=== PATIENT | male | born 1990 | race Caucasian/White ===

== ENCOUNTER 2019-10-21 05:43 | Emergency (ER) | payer MEDICAID, SELFPAY ==
[2019-10-21 05:47] VITALS: BP 150/87; PULSE 87; RESP 16; TEMP 36.7; O2SAT 97
[2019-10-21] MEDS: Fluorescein STRIPS 100/BOX 1 MG OP (05:51)
[2019-10-21] MEDS: Tetracaine 0.5% 4 ML BTL (05:51)
--- NOTE | 2019-10-21 05:55 | W.ED.GENAD ---
Discharge Plan Disposition Patient Disposition: HOME Condition: Good Discharge Details Chief Complaint: EyeProblem Clinical Impression: Abrasion of cornea, right Primary Care Provider: Anirudh Richardson ED Provider: Cyrus Leonardo Home Meds and New Rx's Prescriptions: No Action methadone 40 mg Tablet,Soluble 80 mg PO DAILY RF: 0 Discharge Instructions Instructions: Corneal Abrasion (ED) Additional Instructions: You have an abrasion of your cornea. These usually heal very quickly. Please apply the erythromycin ointment 3 times daily. Please follow-up closely with the customer service engineer whose name and number we have provided you with. If you notice drainage from your eye, vision changes, worsening of your symptoms please return immediately for reassessment. As always it is a pleasure participating in your care today. [facility]: [phone] Referrals: [facility] [OTHER] - Medical Decision Making This is a pleasant 28-year-old male who presents for pain in his right eye that he noticed when he woke up. He denies any red flags or trauma to the right eye recently. Physical exam demonstrates fluorescein uptake in the right eye consistent with mild corneal abrasion. Eversion of the lids bilaterally demonstrate no evidence of foreign body. No evidence of foreign body in the eye itself. Pain relieved with tetracaine. Patient will be given erythromycin ointment for home use. Gave information for follow-up with Dr. Ribera. Vision 20/25 in the affected eye. No clinical evidence of acute angle-closure glaucoma or other abnormality. I have extensively reviewed the treatment plan and discharge instructions with the patient and their family. I have addressed all patient concerns at this time. The patient and family was made aware of what symptoms to monitor for that would warrant a return to the emergency department. Discussed the plan with the patient and family, they demonstrate verbal understanding and agreement with our assessment and plan at this time. HPI General Date/Time Provider Initiated Documentation: 10/21/19 05:45. HPI Narrative: This is a 28-year-old male with no significant past medical history who presents today for right eye pain. Patient does not wear contact lenses. Tetanus is updated 2 years ago. States that when he woke up this morning he had significant irritation in his right eye. He admits to mild blurriness. He denies any fever, chills. He denies any trauma or welding recently. He denies getting anything in his eye. He has no other complaints at this time. No other modifying factors. Related Data Home Medications Medication Instructions Recorded Confirmed methadone 80 mg PO DAILY 10/21/19 10/21/19 Allergies Allergy/AdvReac Type Severity Reaction Status Date / Time amoxicillin [Amoxicillin] Allergy Skin Rash Unverified 10/21/19 05:55 cefaclor [From Ceclor] Allergy Hives Unverified 10/21/19 05:55 General Stated Complaint: EyeProblem ANDRES: 4 Review of Systems All systems reviewed & are unremarkable except as noted in HPI and below [facility] Medical History (Updated 10/21/19 @ 05:56 by Kriss Feliz) Drug addiction (Acute) Social History Smoking/Tobacco Use Status: Current every day Drug use: Never Do you feel safe in your relationship?: Yes Exam Narrative Exam Narrative: 1.Const: Well-nourished, Well-developed, appearing stated age 2.Eyes: PERRL, no conjunctival injection, and symmetrical lids. Right eye: EOMI, PERRL, Peripheral vision intact. No nystagmus. No clinical signs of septal/orbital cellulitis, no significant redness around the eye, no proptosis. No hyphema, no signs of trauma around the eye, no periorbital emphysema. No sluggishness of the pupil. No ophthalmoplegia. No afferent pupillary defect. Fluorescein exam is positive for uptake and corneal abrasion in a linear fashion just below the pupil. No evidence of foreign body. No rest ring. negative Morris sign. Visual acuity as documented in chart. 3.ENT: Atraumatic external nose and ears. Moist MM. Neck: Symmetric, trachea midline, No thyromegaly. 4.CVS: +S1/S2, No murmurs or gallops. Peripheral pulses 2+ and equal in all extremities. Brisk capillary refill in all extremities. 5.RESP: Unlabored respiratory effort. Clear to auscultation bilaterally. No wheezes rales or rhonchi 6.GI: Soft, Nontender/Nondistended, No hepatosplenomegaly. No guarding or rebound. 7.MSK: Normocephalic/Atraumatic, Extremities w/o deformity or ttp No cyanosis or clubbing, Normal movement of all extremities 8.Skin: Warm, Dry. No rashes or lesions. 9.Neuro: emt i/99 II-XII grossly intact. Sensation grossly intact, no focal neurologic deficits. 10.Psych: (AAO) x3. Appropriate mood and affect Course Vital Signs Vital signs: Vital Signs Temperature 36.7 C 10/21/19 05:47 Pulse 87 10/21/19 05:47 Respiratory Rate 16 10/21/19 05:47 Blood Pressure 150/87 H 10/21/19 05:47 Pulse Oximetry 97 10/21/19 05:47 Temperature 36.7 C 10/21/19 05:47 Temperature Source Skin 10/21/19 05:47 Pulse 87 10/21/19 05:47 Respiratory Rate 16 10/21/19 05:47 Respiratory Effort 10/21/19 05:52 Blood Pressure 150/87 H 10/21/19 05:47 Pulse Oximetry 97 10/21/19 05:47 Pain Level 2 10/21/19 05:47
[2019-10-21] MEDS: Erythromycin Ophth Oint 3.5 GM TUBE OD (06:00)
== END 2019-10-21 06:05 | disposition home or self-care (01) ==
PROVIDERS: Emergency Provider Student in an Organized Health Care Education/Training Program; PCP General Practice
DX: S05.01XA Injury of conjunctiva and corneal abrasion without foreign body, right eye, initial encounter (principal); X58.XXXA Exposure to other specified factors, initial encounter
CPT/HCPCS: 99283

== ENCOUNTER 2020-02-13 12:03 | Emergency (ER) | payer MEDICAID, SELFPAY ==
[2020-02-13] VITALS (7 sets, daily range): BP systolic 157–176; BP diastolic 94–154; PULSE 65–96; RESP 12–20; TEMP 36.6; O2SAT 97–100
--- NOTE | 2020-02-13 12:14 | ED.GENADUL_ITS ---
Discharge Plan Disposition Patient Disposition: HOME Condition: Stable Discharge Details Chief Complaint: GenMedical Clinical Impression: Anxiety Primary Care Provider: None,None ED Provider: Araceli Herrera Home Meds and New Rx's Prescriptions: New ondansetron HCl [Zofran] 4 mg tablet 4 mg PO Q8H PRN (Reason: nausea and vomiting) Qty: 7 RF: 0 No Action methadone 40 mg Tablet,Soluble 105 mg PO DAILY RF: 0 Discharge Instructions Instructions: Alcohol Withdrawal (ED), Anxiety (ED) Additional Instructions: Follow up with primary care provider in 3-5 days. Return to ED sooner if any worsening or concerns. Increase oral fluids. Please take Tylenol or Ibuprofen with food every 4-6 hours as needed for pain and swelling. Take medications as directed. Try oral electrolyte solution such as Gatorade or similar. Referrals: Anirudh Richardson MD [ [facility] STAFF PHYSICIAN] - Medical Decision Making 29-year-old male presents with anxiety, vomiting after a 9-day alcohol binge. Patient states that he lost his job broke up with his girlfriend started drinking. Reports he has been vomiting today denies any hematochezia or dark tarry stools. He denies any suicidal ideation or homicidal ideation. No abdominal pain. Patient does appear agitated and anxious, but orders in place including Lorazepam 0.5 mg p.o., Zofran 4 mg IV and 1 L normal saline bolus. 1243: Patient reevaluation, he is lying in bed appears more comfortable heart rate 82, IV infusing without difficulty. Blood pressure is decreased 150/75. 1340: At this time I feel it is safe for patient to be discharged home with Zofran and instructions to increase oral fluids. Given instructions for alcohol withdrawal and anxiety. Instructed to follow-up with PCP. HPI General Mode of arrival: EMS . Date/Time Provider Initiated Documentation: 02/13/20 12:09 . Limitations to Documentation: no limitations . Information obtained by: patient . HPI Narrative: 29-year-old male presents with anxiety, vomiting after a 9-day alcohol binge. Patient states that he lost his job broke up with his girlfriend started drinking. Reports he has been vomiting today denies any hematochezia or dark tarry stools. He denies any suicidal ideation or homicidal ideation. No abdominal pain. Related Data Home Medications Medication Instructions Recorded Confirmed methadone 105 mg PO DAILY 10/21/19 02/13/20 ondansetron HCl [Zofran] 4 mg PO Q8H PRN #7 tab 02/13/20 Previous Rx's Medication Instructions Recorded ondansetron HCl [Zofran] 4 mg PO Q8H PRN #7 tab 02/13/20 Allergies Allergy/AdvReac Type Severity Reaction Status Date / Time amoxicillin [Amoxicillin] Allergy Skin Rash Unverified 02/13/20 12:12 cefaclor [From Ceclor] Allergy Hives Unverified 02/13/20 12:12 General Stated Complaint: GenMedical ANDRES: 3 Review of Systems Narrative: Constitutional: Negative for weight loss, alert and oriented, well groomed, normal body habitus, appears comfortable. HEENT: Denies trauma, headaches, blurry vision, nasal discharge, sore throat, trouble swallowing. Chest: Denies chest pain, palpitations, irregular rhythm, is hypertensive upon arrival but denies a history of hypertension. Respiratory: Denies Shortness of breath, cough, hemoptysis. GI: Denies abdominal pain. Positive vomiting : Denies dysuria, hematuria, flank pain, rectal bleeding. Neuro: Alert and oriented x4 denies dizziness, blurry vision.. Hematologic: Denies easy bruising, intolerance to heat or cold, hair loss. [facility] Medical History Drug addiction (Acute) Social History Smoking/Tobacco Use Status: Current every day Drug use: Never Do you feel safe in your relationship?: Yes Exam Narrative Exam Narrative: Constitutional: Allert and oriented x3. Anxious. Appears stated age. Normal body habitus. Head: Normocephalic, no trauma. Eyes: Pupils PERRLA, Red reflex noted, EOM's intact. Eyelids symmetrical withour lesions, discharge, or swelling. ENT: Bilateral TM's WNL, External ear normal to inspection, no mastoid TTP, swelling, or erythema, Nasal turbinates WNL, no nasal discharge. Normal dentition, Posterior pharynx WNL, no exudate. Chest: RRR, Normal S1, S2, distal pulses intact. Resp: Lungs clear to auscultation bilaterally, no wheezes, rales, or rhonchi. Abdomen: Abdomen is soft nontender to palpation, normoactive bowel sounds all 4 quadrants. Musculoskeletal: Normal gait, 5/5 strength to all four extremities. Skin: No suspicious rashes or lesions. Capillary refill less than 2 sec. Neurologic: Cranial nerves II-XII intact. Alert and oriented x 3. DTR's intact. Hematologic/Lymphatic: No ecchymosis, no lymphadenopathy. Course Vital Signs Vital signs: Vital Signs Temperature 36.6 C 02/13/20 12:06 Pulse 68 02/13/20 12:06 Respiratory Rate 14 02/13/20 12:06 Blood Pressure 176/154 H 02/13/20 12:06 Pulse Oximetry 100 02/13/20 12:06 Temperature 36.6 C 02/13/20 12:06 Temperature Source Skin 02/13/20 12:06 Pulse 68 02/13/20 12:06 Respiratory Rate 14 02/13/20 12:06 Respiratory Effort Non-Labored 02/13/20 12:11 Blood Pressure 176/154 H 02/13/20 12:06 Blood Pressure Position Sitting 02/13/20 12:06 Pulse Oximetry 100 02/13/20 12:06 Oxygen Delivery Method Room Air 02/13/20 12:06 Oxygen Flow Rate 0 02/13/20 12:06
[2020-02-13] MEDS: Normal Saline 1,000 ML 1000 ML IV (12:23)
[2020-02-13] MEDS: LORazepam 0.5 MG TAB PO (12:23)
[2020-02-13] MEDS: Ondansetron 4 MG/2 ML VIAL IVP (12:24)
== END 2020-02-13 13:25 | disposition home or self-care (01) ==
LOC: ER 13:26
PROVIDERS: Emergency Provider Registered Nurse Emergency
DX: F41.9 Anxiety disorder, unspecified (principal); Z56.0 Unemployment, unspecified; R11.10 Vomiting, unspecified
CPT/HCPCS: 96361; 96374; 99284; 99283; J2405

== ENCOUNTER 2020-04-23 05:37 | Inpatient (IN) | payer MEDICAID, SELFPAY ==
[2020-04-23] VITALS (102 sets, daily range): BP systolic 143–188; BP diastolic 72–115; PULSE 75–167; RESP 11–27; TEMP 36.3–36.8; O2SAT 90–100
--- NOTE | 2020-04-23 | DI.US_ITS ---
EXAM: US ABDOMEN CLINICAL HISTORY: abdominal pain TECHNIQUE: Ultrasound abdomen performed using standard protocol. COMPARISON: CT CT ABDOMEN PELVIS W from 04/23/2020 FINDINGS: ABDOMINAL AORTA AND IVC: Visualized portions normal caliber. PANCREAS: Normal where visualized. LIVER: Increased echogenicity of the liver consistent with fatty infiltration. The liver is enlarged measuring 19 cm. Hepatopedal flow in the Portal Vein. GALLBLADDER: No evidence of cholelithiasis. No evidence of wall thickening. No pericholecystic fluid identified. BILIARY SYSTEM: Common bile duct measures 9.2 mm. No intrahepatic biliary ductal dilation. AMAYA'S SIGN: Negative. KIDNEYS: Kidneys are symmetric in size. No evidence of renal calculi. No evidence of hydronephrosis. No renal mass or cyst identified. SPLEEN: Not enlarged. ASCITES: None seen. IMPRESSION: 1. Hepatomegaly and hepatic steatosis. 2. Dilatation of the common bile duct to 9.2 mm. No evidence of cholelithiasis or choledocholithiasi s. DATA REPOSITORY:
--- NOTE | 2020-04-23 05:44 | ED.GENADUL_ITS ---
Discharge Plan Disposition Patient Disposition: [facility] INPATIENT Condition: Stable Discharge Details Chief Complaint: ETOHWithdr Clinical Impression: Alcohol withdrawal Primary Care Provider: Jesus Dickson ED Provider: Nate Castillo Home Meds and New Rx's Prescriptions: No Action methadone 40 mg Tablet,Soluble 105 mg PO DAILY RF: 0 Medical Decision Making 29 yo male with hx of substance abuse on methadone comes in with abdominal pain that he states feels like his prior episode of pancreatitis. He states he has been on a malik drinking over 15 beers a day and also used cocaine last night. HE states he has mid to epigastric abdominal pain along with n/v. He denies fevers, dyspnea, chest pressure. He arrives tachycardic in the 150's, diaphoretic with tremors of the extremities. Suspect he is in alcohol withdrawal and likely has pancreatitis. Will tx with ativan, zofran, and obtain lab work and imaging. labs show lactate of 3.4 otherwise no other acute significant abnormalities. CT shows no acute findings, they do question cystitis, but UA clean and he has no symptoms. He is less anxious and less tremulous though still has some tremors and nausea and HR 130, will treat with another dose of ativan. CIWA is over 20 so do not feel he is candidate to go home, will discuss with hospitalist about admission Differential Diagnosis Differential Diagnosis: pancreatitis, kidney stone, alcohol withdrawal Medical Records Medical records reviewed: Yes I reviewed the patient's medical records. Imaging Data Radiologic Study: Attestation: I personally reviewed and interpreted this imaging study as follows: Imaging: CT Scan Radiologist's impression: IMPRESSION: 1. Moderate amount of colonic fecal material. 2. Equivocal cystitis. Lab Data Lab results reviewed: Yes I reviewed the patient's lab results. ECG Data Attestation: I personally reviewed and interpreted this ECG (s) as follows: Prior ECG tracings: not available for review Interpretation: sinus tachycardia, rate of 133, pr 114, qtc 470 HPI General Mode of arrival: ambulatory . Date/Time Provider Initiated Documentation: 04/23/20 05:39 . Limitations to Documentation: no limitations . Information obtained by: patient . History of Present Illness 29 year old M presents to the emergency department with the chief complaint of abdominal pain, described as moderate, and it has been constant. No relieving factors improve symptom(s), No exacerbating factors reported . Patient did receive the following treatments prior to arrival, none Related Data Home Medications Medication Instructions Recorded Confirmed methadone 105 mg PO DAILY 10/21/19 04/23/20 Allergies Allergy/AdvReac Type Severity Reaction Status Date / Time amoxicillin [Amoxicillin] Allergy Skin Rash Unverified 02/13/20 12:12 cefaclor [From Ceclor] Allergy Hives Unverified 02/13/20 12:12 General Stated Complaint: ETOHWithdr ANDRES: 2 Review of Systems All systems reviewed & are unremarkable except as noted in HPI and below Constitutional Constitutional: Denies chills, Denies fever(s) and Denies weakness Cardiovascular Cardiovascular: Denies chest pain and Denies dyspnea Respiratory Respiratory: Denies cough and Denies dyspnea Musculoskeletal Musculoskeletal: Denies joint swelling Neurologic Neurologic: Denies weakness [facility] Social History Smoking/Tobacco Use Status: Current every day Alcohol Intake: current Alcohol Intake frequency: 3 or more drinks per day Alcohol type: beer Drug use: Occasionally Substance use type: crack/cocaine Do you feel safe at home: Yes Do you feel safe in your relationship?: Yes Exam Const General: anxious Orientation: alert HENMT Head: normal to inspection Ears: external ears normal General nose exam: external nose normal Mouth: moist mucous membranes Eyes General: appearance normal, both eyes and all related structures Neck Neck: normal visual inspection Resp Effort & Inspection: normal respiratory effort and able to speak in complete sentences Cardio Rate: tachycardic Skin General skin exam: no rashes or lesions noted Neuro General: patient alert and patient oriented x3 Extrem General: normal to inspection Psych Mental Status: mental status grossly normal Course Vital Signs Vital signs: Vital Signs Temperature 36.3 C L 04/23/20 05:39 Pulse 158 H 04/23/20 05:39 Respiratory Rate 16 04/23/20 05:39 Blood Pressure 188/115 H 04/23/20 05:39 Pulse Oximetry 95 04/23/20 05:39 Temperature 36.3 C L 04/23/20 05:39 Temperature Source Skin 04/23/20 05:39 Pulse 158 H 04/23/20 05:39 Respiratory Rate 16 04/23/20 05:39 Blood Pressure 188/115 H 04/23/20 05:39 Blood Pressure Position Sitting 04/23/20 05:39 Pulse Oximetry 95 04/23/20 05:39 Oxygen Delivery Method Room Air 04/23/20 05:39 Oxygen Flow Rate 0 04/23/20 05:39 Pain Level 9 04/23/20 05:39
[2020-04-23] MEDS: Omnipaque 350 MG/ML 100 ML BTL IJ (05:55)
[2020-04-23] MEDS: LORazepam 2 MG/ML VIAL IVP ×6 (06:00→22:51)
[2020-04-23] MEDS: Normal Saline Flush 10 ML SYR IVP ×6 (06:01→23:08)
[2020-04-23] MEDS: Normal Saline 1,000 ML 1000 ML IV ×2 (06:01→06:55)
[2020-04-23] MEDS: Ondansetron 4 MG/2 ML VIAL IVP (06:01)
[2020-04-23] MEDS: Ketorolac 15 MG/ML VIAL IVP (06:01)
[2020-04-23 06:02] LABS: Abs Immature Grans 0.01 k/cumm (0.0-0.09); Absolute Basophil Count 0.02 k/cumm (0.0-0.2); Absolute Eosinophil Count 0.01 k/cumm (0.0-0.7); Absolute Lymphocyte Count 0.85 k/cumm (1.2-3.4); Absolute Monocyte Count 0.63 k/cumm (0.11-0.7); Absolute Neutrophil Count 4.57 k/cumm (1.2-6.7); Basophils % 0.3; Eosinophils % 0.2; HCT 41.9 % (40.0-50.0); HGB 14.6 g/dL (13.5-17.5); Immature Grans % 0.2 %; Mean Corp. HGB Concentration 34.8 g/dL (32.0-36.0); Mean Corpuscular Volume 94.8 fL (80-95); Mean Platelet Volume 9.2 fL (8.0-11.0); Monocytes % 10.3; Platelet Count 197 x1000/uL (130-400); RBC 4.42 m/cumm (4.50-6.00); RBC Distribution Width 15.6 % (11.8-14.1); White Blood Cell Count 6.09 k/cumm (4.4-10.8)
[2020-04-23 06:06] LABS: Lactate 3.4 mmol/L (0.6-1.4)
[2020-04-23 06:16] LABS: INR 1.1 (0.9-1.1); Prothrombin Time 11.4 sec (9.3-11.0)
[2020-04-23 06:20] LABS: Bilirubin Negative (Negative); Blood Negative (Negative); Clarity Clear (Clear); Glucose Negative (Negative); Ketones Negative (Negative); Leukocyte Esterase Negative (Negative); Nitrite Negative (Negative); Specific Gravity 1.015 (1.005-1.025); pH 8.5 (5-8)
[2020-04-23 06:22] LABS: ALT 89 U/L (16-63); AST 114 U/L (15-37); Albumin 4.2 g/dL (3.4-5.0); Alkaline Phosphatase 138 U/L (46-116); Anion Gap 9.4 mmol/L (3-11); BUN 10 mg/dL (7-18); Bilirubin, Direct 0.22 mg/dL (0.00-0.20); Bilirubin, Total 0.5 mg/dL (0.2-1.0); CO2 30.6 mmol/L (21.0-32.0); CREATININE 1.05 mg/dL (0.70-1.30); Calcium 8.8 mg/dL (8.5-10.1); Chloride 101 mmol/L (98-107); ETHANOL BLOOD 123.4 mg/dL (<3); Glucose 140 mg/dL (74-106); Lipase 105 U/L (73-393); Magnesium 1.5 mg/dL (1.8-2.4); Potassium 4.1 mmol/L (3.5-5.1); Sodium 141 mmol/L (136-145); Total Protein 7.6 g/dL (6.4-8.2)
[2020-04-23] MEDS: Normal Saline - Diluent 50 ML VIAL IV (06:28)
[2020-04-23 06:29] LABS: Troponin I < 0.05 ng/mL (<0.06)
--- NOTE | 2020-04-23 06:30 | DI.CT_ITS ---
EXAM: CT ABDOMEN PELVIS W CLINICAL HISTORY: middle abdominal pain TECHNIQUE: Imaging Protocol: Axial computed tomography images with coronal and sagittal reformatted images were created and reviewed CONTRAST MATERIAL: Intravenous: Omnipaque 350 Contrast volume:100 mL Oral: No COMPARISON: No exams were available for comparison FINDINGS: ABDOMEN: Lung Bases: Normal where visualized. Liver: Hepatic steatosis. No measurable mass. Portal, Superior Mesenteric, and Splenic Veins: Unremarkable. Gallbladder and Biliary Tract: No radiodense calculus or dilation. Pancreas: Normal density, no abnormal calcifications or inflammatory process. Spleen: Normal. Adrenals: No masses seen. Kidneys: Normal size, contour and axis. No radiodense stones or obstructive uropathy. No masses seen. Abdominal Aorta: Abdominal portion non-dilated. Bowel: No obstruction or bowel wall thickening. No evidence of acute appendicitis. Moderate amount o f retained stool throughout the colon which may represent constipation. Peritoneal Cavity: No ascites, collection or mesenteric inflammatory response. Lymph Nodes: Within normal limits. Bones: Unremarkable. Soft Tissues: Unremarkable. PELVIS: Bladder: Bladder is incompletely visualized. This may account for the mild apparent thickening of th e wall of the urinary bladder. No inflammatory changes are seen in the surrounding soft tissues. Reproductive Organs: Unremarkable as visualized. Lymph Nodes: Within normal limits. Bones: Within normal limits. IMPRESSION: 1. Hepatic steatosis. 2. Increased stool throughout the colon which may reflect constipation. 3. Question of thickening of the wall of the urinary bladder. This may be due to underdistention. A n inflammatory or infectious cystitis cannot be excluded. Please correlate clinically. RADIATION DOSE DELIVERED: 928.68mGy.cm Total DLP DATA REPOSITORY: All CT scans at this facility are submitted to the National Radiology Data Registry (NRDR) Dose Index Registry (DIR) with the [employer] ([employer]). RADIATION OPTIMIZATION: All CT scans at this facility use at least one of these dose optimization te chniques: automated exposure control; mA and/or kV adjustment per patient size (includes targeted exa ms where dose is matched to clinical indication); or iterative reconstruction.
[2020-04-23 06:34] LABS: *AMPHETAMINES SCREEN URINE Negative (Negative); *BARBITURATES SCREEN URINE Negative (Negative); *BENZODIAZEPINES SCREEN URINE Negative (Negative); Cannabinoids THC Negative (Negative); Cocaine Screen,Urine POSITIVE (Negative); METHADONE URINE SCREEN POSITIVE (Negative); OPIATES URINE SCREEN Negative (Negative)
[2020-04-23 06:38] LABS: Tricyclic Antidepressants Negative (Negative)
--- NOTE | 2020-04-23 06:45 | DI.VRAD_ITS ---
PROCEDURE INFORMATION: Exam: CT Abdomen And Pelvis With Contrast Exam date and time: 04/23/2020 5:44 AM Age: 29 years old Clinical indication: Localized; Other: Middle abdomen pain; Patient HX: HX of pancreatitis, middle abdominal pain TECHNIQUE: Imaging protocol: Computed tomography of the abdomen and pelvis with intravenous contrast. Contrast material: OMNIPAQUE 350; Contrast volume: 100 ml; Contrast route: IV LAC; COMPARISON: No relevant prior studies available. FINDINGS: Liver: Hepatic steatosis is present. Gallbladder and bile ducts: Normal. No calcified stones. No ductal dilation. Pancreas: Normal. No ductal dilation. Spleen: Normal. No splenomegaly. Adrenals: Normal. No mass. Kidneys and ureters: Normal. No hydronephrosis. Stomach and bowel: A moderate amount of fecal material is present within the colon.The findings may reflect an element of underlying constipation and clinical correlation is recommended. Appendix: No evidence of appendicitis. Intraperitoneal space: Unremarkable. No free air. No significant fluid collection. Vasculature: Unremarkable. No abdominal aortic aneurysm. Lymph nodes: Unremarkable. No enlarged lymph nodes. Bladder: The urinary bladder is questionably thickwalled. This may reflect incomplete distention. However correlation with UA is recommended to exclude cystitis. Reproductive: Unremarkable as visualized. Bones/joints: Unremarkable. No acute fracture. Soft tissues: Unremarkable. IMPRESSION: 1. Moderate amount of colonic fecal material. 2. Equivocal cystitis. Dictated and Authenticated by: Alfonzo Weiss MD. Ordering:VENANCIO Sullivan MD
[2020-04-23] MEDS: Folic Acid 1 MG TAB PO (06:48)
[2020-04-23] MEDS: MAGNESIUM SULFATE 2 GM/50 ML BAG IVPB ×2 (06:48→09:44)
[2020-04-23] MEDS: THIAMINE 100 MG in Normal Saline 100 ML 200 MG IVPB (06:59)
[2020-04-23] MEDS: Multivitamin TAB 1 TAB PO (07:18)
[2020-04-23] MEDS: chlordiazePOXIDE 25 MG CAP PO ×2 (08:04→10:03)
[2020-04-23] MEDS: LORazepam 2 MG/ML VIAL (08:05)
--- NOTE | 2020-04-23 09:31 | HPE_ITS ---
Date of service: 04/23/20 Time of Service: 09:32 Assessment and Plan Assessment and plan (1) Alcohol withdrawal: Status: Acute Assessment and plan: Admit to the ICU with scheduled librium, CIWA with prn ativan IV/PO, banana bag. Will add gabapentin. Keep NPO as there is a high probability of having to intubate. (2) Alcohol intoxication: Status: Acute Assessment and plan: As above - monitor for w/d. Care management consult for further recovery options (3) Opioid dependence: Status: Acute Assessment and plan: Dose of methadone verify. Will continue starting with tomorrow's dose - patient took his today. (4) Hypomagnesemia: Status: Acute Assessment and plan: Replete and continue to monitor (5) Constipation: Status: Acute Assessment and plan: Bowel regimen (6) Tobacco abuse: Status: Acute Assessment and plan: Advised to quit. Provide nicotrol inhaler. (7) Hepatic steatosis: Status: Acute Assessment and plan: Obtain US abdomen and trend LFTs (8) Transaminitis: Status: Acute Assessment and plan: Likely due to EtOH liver disease/hepatic steatosis. Obtain US abdomen. Trend (9) DVT prophylaxis: Status: Acute Assessment and plan: TEDs Chemical DVT ppx not indicated in an ambulatory 29 year old patient (10) Discharge planning issues: Status: Acute Assessment and plan: Full code Admit to ICU. Total Critical Care Time 60 minutes. History of Present Illness History of Present Illness Chief Complaint: I thought I had pancreatitis abdominal pain, alcohol withdrawal Narrative: Mr Maradiaga is a 29 year old male with PMHx of polysubstance abuse, including opioid dependence, on methadone via [facility], as well as alcohol and tobacco abuse, h/o alcohol withdrawal with hallucinations and seizures in the past, hypertension, alcoholic pancreatitis in the past, who since 5 am this am has been having epigastric pain, nausea, tremors. He vomited in ED. He was found to be actively withdrawing from alcohol in ED with elevated HR and BP, tremors. His CIWA score was 22, requiring IV ativan x2, with resulting CIWA score of 20. He had been trying to wean himself off of alcohol (normally, drinks 18 + tall-boy beers/day) by sipping on the beer, even with epigastric pain, hoping not to withdraw. He also used cocaine early this morning. He states he went on a 5-6 day alcohol drinking malik, but that had been on a long break from drinking prior until then and is interested in quitting. His CT of the abdomen ruled out acute pancreatitis. We were asked to admit the patient for further care. Review of Systems Narrative: 12 systems reviewed. Pertinent positives and negatives are as per HPI. COUNTS INCLUDE 234 BEDS AT THE [facility] Medical History (Updated 04/23/20 @ 10:39 by Krysta Owusu MD) Alcohol withdrawal (Acute) Alcohol withdrawal seizure (Acute) Alcoholic pancreatitis (Acute) Drug addiction (Acute) DTs (delirium tremens) (Acute) Hypertension (Chronic) Methadone use (Acute) via [facility] Opioid dependence (Acute) Polysubstance abuse (Acute) Surgical History (Updated 04/23/20 @ 10:20 by Krysta Owusu MD) No pertinent past surgical history (Acute) Family History (Updated 04/23/20 @ 10:22 by Krysta Owusu MD) Paternal Grandfather Heart disease Paternal Grandmother Diabetes Maternal Grandmother Diabetes Father Hypertension Social History (Updated 04/23/20 @ 10:23 by Krysta Owusu MD) Smoking/Tobacco Use Status: Current every day Tobacco Type: cigarettes Smoking packs per day: 0.5 Smoking cigarettes per day: 10.0 Years smoked: 10 Smoking pack-years: 5.00 Tobacco: How many years used: 10 Quit status: not considering quitting Counseling given: provider counseling and support medications Alcohol Intake: current Alcohol Intake frequency: 3 or more drinks per day Alcohol type: beer Counseling given: Yes Drug use: Occasionally Substance use type: crack/cocaine Do you feel safe at home: Yes Do you feel safe in your relationship?: Yes Meds Home Medications and Allergies Home Medications Medication Instructions Recorded Confirmed Type methadone 105 mg PO DAILY 10/21/19 04/23/20 History Allergies Allergy/AdvReac Type Severity Reaction Status Date / Time amoxicillin [Amoxicillin] Allergy Skin Rash Unverified 02/13/20 12:12 cefaclor [From Ceclor] Allergy Hives Unverified 02/13/20 12:12 Exam Narrative Exam Narrative: General: Very pleasant tremulous diaphoretic male, A&Ox3, not hallucinating at the time that I saw him Neurological: A&Ox3, tremulous, no focal deficits Psychiatric: tremulous/anxious, appropriate speech pattern/content, no hallucinations Skin: visible skin intact; diaphoretic HEENT: Atraumatic, normocephalic, EOMI, dry MM, clear oropharynx, no lymphaden opathy, goiter or JVD Cardiovascular: RRR, tachycardic Lungs: CTAB Gastrointestinal: soft, tender in LUQ, nondistended Genitourinary: deferred Extremities: no e/c/c BLE's Results Imaging Additional studies: CT abdomen/pelvis: 1. Hepatic steatosis. 2. Increased stool throughout the colon which may reflect constipation. 3. Question of thickening of the wall of the urinary bladder. This may be due to underdistention. An inflammatory or infectious cystitis cannot be excluded. Please correlate clinically. Labs Result diagrams: 04/23/20 05:55 04/23/20 05:55 Labs: Laboratory Results - last 24 hr 04/23/20 04/23/20 04/23/20 05:55 05:55 05:55 WBC 6.09 RBC 4.42 L Hgb 14.6 Hct 41.9 MCV 94.8 MCH 33.0 MCHC 34.8 RDW 15.6 H Plt Count 197 MPV 9.2 Immature Gran % 0.2 Neutrophils % 75.0 Lymphocytes % 14.0 Monocytes % 10.3 Eosinophils % 0.2 Basophils % 0.3 Absolute Neutrophils 4.57 Absolute Lymphocytes 0.85 L Absolute Monocytes 0.63 Absolute Eosinophils 0.01 Absolute Basophils 0.02 PT INR Sodium 141 Potassium 4.1 Chloride 101 Carbon Dioxide 30.6 Anion Gap 9.4 BUN 10 Creatinine 1.05 Estimated GFR/1.73 m2 >= 60.00 Glucose 140 H Lactate 3.4 H* Calcium 8.8 Magnesium 1.5 L Total Bilirubin 0.5 Conjugated Bilirubin 0.22 H AST 114 H ALT 89 H Alkaline Phosphatase 138 H Troponin I Total Protein 7.6 Albumin 4.2 Lipase 105 Urine Color Urine Clarity Urine pH Ur Specific [place] Urine Protein Urine Ketones Urine Blood Urine Nitrite Urine Bilirubin Urine Urobilinogen Ur Leukocyte Esterase Urine Glucose Urine Opiates Screen Urine Methadone Screen Ur Barbiturates Screen Ur Tricyclics Screen Ur Amphetamines Screen U Benzodiazepines Scrn Urine Cocaine Screen Ur THC Screen Ethyl Alcohol 123.4 04/23/20 04/23/20 04/23/20 05:55 05:55 06:10 WBC RBC Hgb Hct MCV MCH MCHC RDW Plt Count MPV Immature Gran % Neutrophils % Lymphocytes % Monocytes % Eosinophils % Basophils % Absolute Neutrophils Absolute Lymphocytes Absolute Monocytes Absolute Eosinophils Absolute Basophils PT 11.4 H INR 1.1 Sodium Potassium Chloride Carbon Dioxide Anion Gap BUN Creatinine Estimated GFR/1.73 m2 Glucose Lactate Calcium Magnesium Total Bilirubin Conjugated Bilirubin AST ALT Alkaline Phosphatase Troponin I < 0.05 Total Protein Albumin Lipase Urine Color Urine Clarity Urine pH Ur Specific [place] Urine Protein Urine Ketones Urine Blood Urine Nitrite Urine Bilirubin Urine Urobilinogen Ur Leukocyte Esterase Urine Glucose Urine Opiates Screen Negative Urine Methadone Screen Positive A Ur Barbiturates Screen Negative Ur Tricyclics Screen Negative Ur Amphetamines Screen Negative U Benzodiazepines Scrn Negative Urine Cocaine Screen Positive A Ur THC Screen Negative Ethyl Alcohol 04/23/20 06:10 WBC RBC Hgb Hct MCV MCH MCHC RDW Plt Count MPV Immature Gran % Neutrophils % Lymphocytes % Monocytes % Eosinophils % Basophils % Absolute Neutrophils Absolute Lymphocytes Absolute Monocytes Absolute Eosinophils Absolute Basophils PT INR Sodium Potassium Chloride Carbon Dioxide Anion Gap BUN Creatinine Estimated GFR/1.73 m2 Glucose Lactate Calcium Magnesium Total Bilirubin Conjugated Bilirubin AST ALT Alkaline Phosphatase Troponin I Total Protein Albumin Lipase Urine Color Yellow Urine Clarity Clear Urine pH 8.5 H Ur Specific [place] 1.015 Urine Protein Negative Urine Ketones Negative Urine Blood Negative Urine Nitrite Negative Urine Bilirubin Negative Urine Urobilinogen 1.0 H Ur Leukocyte Esterase Negative Urine Glucose Negative Urine Opiates Screen Urine Methadone Screen Ur Barbiturates Screen Ur Tricyclics Screen Ur Amphetamines Screen U Benzodiazepines Scrn Urine Cocaine Screen Ur THC Screen Ethyl Alcohol Last Vital Signs Temp 36.6 C 04/23/20 09:02 Pulse 130 H 04/23/20 09:02 Resp 19 04/23/20 09:10 BP 164/100 H 04/23/20 09:00 Pulse Ox 97 04/23/20 09:02 COVID-19 Screening In the past 14 days, have you traveled outside of [place] or [place]?: NO Had IN PERSON contact w/suspected or confirmed C-19 person: No
[2020-04-23 09:34] LABS: Lactate 2.4 mmol/L (0.6-1.4)
[2020-04-23] MEDS: MULTIVITAMIN 10 ML, THIAMINE 100 MG, FOLIC ACID 1 MG in DEXTROSE 5%-0.45% SALINE 1,000 ML 125 ML IV (09:42)
[2020-04-23] MEDS: Pantoprazole 40 MG VIAL IVP ×3 (10:02→23:05)
[2020-04-23] MEDS: Gabapentin 300 MG CAP 600 MG PO (11:17)
[2020-04-23] MEDS: chlordiazePOXIDE 25 MG CAP 50 MG PO ×2 (13:04→19:40)
[2020-04-23] MEDS: Normal Saline 1,000 ML 125 ML IV (17:34)
--- NOTE | 2020-04-23 22:42 | W.PM.PROGNOT ---
Date of Service Date of service: 04/23/20 Time of Service: 22:43 Subjective Subjective Interval history since last seen: Asked to assess for abd pain. Case reviewed. Admitted earlier today with alcohol w/d, and having abd pain at time. W/u of note for normal white count and lipase and CT of note for no signs pancreatitis, along with hepatic steatosis. Patient reports pain as roughly periumbilical or somewhat to right. Says Ativan helps with the pain. On exam: 170/110, 106, 36.4, 16. Sitting up, appears modestly uncomfortable. Abdomen +BS, soft, mild RUQ tendernes w/o rebound A/P: Abdominal pain. In this setting, AND WITH FINDINGS TO DATE, i THINK MOST LIKELY EXPLANATION IS EITHER ALCOHOLIC GASTRITIS OR ADDITIONALLY ELEMENT HEPATITIS. Certainly abd exam relatively benign. I do not see that we need to repeat work up. Will add PPI and give prn Morphine 5-10 q3 Objective Objective Clinical Data: Abnormal lab results 04/23/20 04/23/20 04/23/20 Range/Units 05:55 05:55 05:55 RBC 4.42 L (4.50-6.00) m/cumm RDW 15.6 H (11.8-14.1) % Absolute Lymphocytes 0.85 L (1.2-3.4) k/cumm PT (9.3-11.0) sec Glucose 140 H (74-106) mg/dL Lactate 3.4 H* (0.6-1.4) mmol/L Magnesium 1.5 L (1.8-2.4) mg/dL Conjugated Bilirubin 0.22 H (0.00-0.20) mg/dL AST 114 H (15-37) U/L ALT 89 H (16-63) U/L Alkaline Phosphatase 138 H (46-116) U/L Urine pH (5-8) Urine Urobilinogen (Up TO 0.2) EU/dL Urine Methadone Screen (Negative) Urine Cocaine Screen (Negative) 04/23/20 04/23/20 04/23/20 Range/Units 05:55 06:10 06:10 RBC (4.50-6.00) m/cumm RDW (11.8-14.1) % Absolute Lymphocytes (1.2-3.4) k/cumm PT 11.4 H (9.3-11.0) sec Glucose (74-106) mg/dL Lactate (0.6-1.4) mmol/L Magnesium (1.8-2.4) mg/dL Conjugated Bilirubin (0.00-0.20) mg/dL AST (15-37) U/L ALT (16-63) U/L Alkaline Phosphatase (46-116) U/L Urine pH 8.5 H (5-8) Urine Urobilinogen 1.0 H (Up TO 0.2) EU/dL Urine Methadone Screen Positive A (Negative) Urine Cocaine Screen Positive A (Negative) 04/23/20 Range/Units 09:10 RBC (4.50-6.00) m/cumm RDW (11.8-14.1) % Absolute Lymphocytes (1.2-3.4) k/cumm PT (9.3-11.0) sec Glucose (74-106) mg/dL Lactate 2.4 H* (0.6-1.4) mmol/L Magnesium (1.8-2.4) mg/dL Conjugated Bilirubin (0.00-0.20) mg/dL AST (15-37) U/L ALT (16-63) U/L Alkaline Phosphatase (46-116) U/L Urine pH (5-8) Urine Urobilinogen (Up TO 0.2) EU/dL Urine Methadone Screen (Negative) Urine Cocaine Screen (Negative) Vital Signs Temperature 36.4 C L 04/23/20 18:00 Temperature Source Tympanic 04/23/20 18:00 Pulse 85 04/23/20 21:00 Pulse 88 04/23/20 21:30 Respiratory Rate 16 04/23/20 21:30 Respiratory Effort 04/23/20 21:32 Respiratory Depth Normal 04/23/20 21:32 Respiratory Pattern Normal 04/23/20 21:32 Blood Pressure 154/90 H 04/23/20 21:00 Blood Pressure Mean 104 04/23/20 21:00 Blood Pressure Position Sitting 04/23/20 05:39 Pulse Oximetry 98 04/23/20 21:30 Oxygen Delivery Method Room Air 04/23/20 09:02 Oxygen Flow Rate 0 04/23/20 09:02 Pain Level 8 04/23/20 18:00 Intake & Output 04/22/20 04/23/2004/23/20 23:59 11:59 23:59 Intake Total 215 / 4162.2 2010.4161.2 Output Total 880 / 1530 650 / 1530 Balance 1271 / 2632.2 1361.2 / 2632.2 Weight 83.7 kg Intake: IV 2150 / 4162.2 4161. Output: Urine 880 / 1530 650 / 1530 Other: Urine Color Yellow Pale Straw Yellow Urine Appearance Clear Clear Urine Odor None None Comment used urinal for clear yellow urine with neg dipstick Voiding Methods Urinal Urinal Laboratory Results WBC 6.09 k/cumm (4.4-10.8) 04/23/20 05:55 RBC 4.42 m/cumm (4.50-6.00) L 04/23/20 05:55 Hgb 14.6 g/dL (13.5-17.5) 04/23/20 05:55 Hct 41.9 % (40.0-50.0) 04/23/20 05:55 MCV 94.8 fL (80-95) 04/23/20 05:55 MCH 33.0 pg (27.0-33.0) 04/23/20 05:55 MCHC 34.8 g/dL (32.0-36.0) 04/23/20 05:55 RDW 15.6 % (11.8-14.1) H 04/23/20 05:55 Plt Count 197 x1000/uL (130-400) 04/23/20 05:55 MPV 9.2 fL (8.0-11.0) 04/23/20 05:55 Immature Gran % 0.2 % 04/23/20 05:55 Neutrophils % 75.0 04/23/20 05:55 Lymphocytes % 14.0 04/23/20 05:55 Monocytes % 10.3 04/23/20 05:55 Eosinophils % 0.2 04/23/20 05:55 Basophils % 0.3 04/23/20 05:55 Absolute Neutrophils 4.57 k/cumm (1.2-6.7) 04/23/20 05:55 Absolute Lymphocytes 0.85 k/cumm (1.2-3.4) L 04/23/20 05:55 Absolute Monocytes 0.63 k/cumm (0.11-0.7) 04/23/20 05:55 Absolute Eosinophils 0.01 k/cumm (0.0-0.7) 04/23/20 05:55 Absolute Basophils 0.02 k/cumm (0.0-0.2) 04/23/20 05:55 PT 11.4 sec (9.3-11.0) H 04/23/20 05:55 INR 1.1 (0.9-1.1) 04/23/20 05:55 Sodium 141 mmol/L (136-145) 04/23/20 05:55 Potassium 4.1 mmol/L (3.5-5.1) 04/23/20 05:55 Chloride 101 mmol/L (98-107) 04/23/20 05:55 Carbon Dioxide 30.6 mmol/L (21.0-32.0) 04/23/20 05:55 Anion Gap 9.4 mmol/L (3-11) 04/23/20 05:55 BUN 10 mg/dL (7-18) 04/23/20 05:55 Creatinine 1.05 mg/dL (0.70-1.30) 04/23/20 05:55 Estimated GFR/1.73 m2 >= 60.00 (mL/min/1.73m2) 04/23/20 05:55 Glucose 140 mg/dL (74-106) H 04/23/20 05:55 Lactate 1.0 mmol/L (0.6-1.4) 04/23/20 12:05 Calcium 8.8 mg/dL (8.5-10.1) 04/23/20 05:55 Magnesium 1.5 mg/dL (1.8-2.4) L 04/23/20 05:55 Total Bilirubin 0.5 mg/dL (0.2-1.0) 04/23/20 05:55 Conjugated Bilirubin 0.22 mg/dL (0.00-0.20) H 04/23/20 05:55 AST 114 U/L (15-37) H 04/23/20 05:55 ALT 89 U/L (16-63) H 04/23/20 05:55 Alkaline Phosphatase 138 U/L (46-116) H 04/23/20 05:55 Troponin I < 0.05 ng/mL (<0.06) 04/23/20 05:55 Total Protein 7.6 g/dL (6.4-8.2) 04/23/20 05:55 Albumin 4.2 g/dL (3.4-5.0) 04/23/20 05:55 Lipase 105 U/L (73-393) 04/23/20 05:55 Urine Color Yellow (Yellow) 04/23/20 06:10 Urine Clarity Clear (Clear) 04/23/20 06:10 Urine pH 8.5 (5-8) H 04/23/20 06:10 Ur Specific [place] 1.015 (1.005-1.025) 04/23/20 06:10 Urine Protein Negative mg/dL (Negative) 04/23/20 06:10 Urine Ketones Negative mg/dL (Negative) 04/23/20 06:10 Urine Blood Negative (Negative) 04/23/20 06:10 Urine Nitrite Negative (Negative) 04/23/20 06:10 Urine Bilirubin Negative (Negative) 04/23/20 06:10 Urine Urobilinogen 1.0 EU/dL (Up TO 0.2) H 04/23/20 06:10 Ur Leukocyte Esterase Negative (Negative) 04/23/20 06:10 Urine Glucose Negative mg/dL (Negative) 04/23/20 06:10 Urine Opiates Screen Negative (Negative) 04/23/20 06:10 Urine Methadone Screen Positive (Negative) A 04/23/20 06:10 Ur Barbiturates Screen Negative (Negative) 04/23/20 06:10 Ur Tricyclics Screen Negative (Negative) 04/23/20 06:10 Ur Amphetamines Screen Negative (Negative) 04/23/20 06:10 U Benzodiazepines Scrn Negative (Negative) 04/23/20 06:10 Urine Cocaine Screen Positive (Negative) A 04/23/20 06:10 Ur THC Screen Negative (Negative) 04/23/20 06:10 Ethyl Alcohol 123.4 mg/dL (<3) 04/23/20 05:55
--- NOTE | 2020-04-23 23:46 | NUR.NOTE ---
2229-pt- has been c/o severe abd pain that is 11 put of [address] 10[address] Richardson has been called and he is here to eval pt. has ordered protonix and morphine. Dr. Richardson also informed that pt has scored a 23 on the ciwa and will be given another dose of 4mg iv of lorazepam
[2020-04-24] VITALS (24 sets, daily range): BP systolic 135–168; BP diastolic 78–104; PULSE 60–97; RESP 10–16; TEMP 36.5–36.7; O2SAT 95–99
--- NOTE | 2020-04-24 | DI.MRI_ITS ---
EXAM: MR ABDOMEN WO CLINICAL HISTORY: MRCP - dilated CBD TECHNIQUE: Multiplanar multisequence MRA of the Abdomen was performed. COMPARISON: CT CT ABDOMEN PELVIS W from 04/23/2020 FINDINGS: Liver: Findings consistent with fatty infiltration. Gallbladder: No evidence of cholelithiasis. There is dilatation of the common bile duct down to the head of the pancreas. It measures up to 1.3 cm in diameter. No obstructing calculus or mass is seen . Pancreas: There is fluid seen in the peripancreatic tissues and into the lesser sac region of the upp er abdomen. The main pancreatic duct is not dilated. No pancreatic pseudocyst or necrosis is apprec iated. Visualized portions of the spleen, adrenals and kidneys are unremarkable. IMPRESSION: 1. Dilatation of the common bile duct up to 1.3 cm down to the head of the pancreas. No definite huong culus or pancreatic mass is seen. No evidence of cholelithiasis. 2. Findings raising the question of acute pancreatitis with fluid in the peripancreatic soft tissues. No pseudocyst or pancreatic necrosis is identified. 3. Fatty infiltration of the liver. DATA REPOSITORY:
[2020-04-24] MEDS: LORazepam 2 MG/ML VIAL IVP ×3 (00:58→15:38)
[2020-04-24] MEDS: Normal Saline 1,000 ML 125 ML IV ×2 (01:02→20:23)
[2020-04-24] MEDS: chlordiazePOXIDE 25 MG CAP 50 MG PO ×4 (01:02→20:18)
[2020-04-24] MEDS: Docusate Sodium 100 MG CAP PO ×2 (05:08→20:18)
[2020-04-24] MEDS: Acetaminophen 325 MG TAB PO (05:08)
[2020-04-24 07:10] LABS: Abs Immature Grans 0.02 k/cumm (0.0-0.09); Absolute Basophil Count 0.01 k/cumm (0.0-0.2); Absolute Eosinophil Count 0.05 k/cumm (0.0-0.7); Absolute Lymphocyte Count 0.59 k/cumm (1.2-3.4); Absolute Monocyte Count 0.49 k/cumm (0.11-0.7); Absolute Neutrophil Count 3.43 k/cumm (1.2-6.7); Basophils % 0.2; Eosinophils % 1.1; HCT 39.4 % (40.0-50.0); HGB 13.4 g/dL (13.5-17.5); Immature Grans % 0.4 %; Lymphocytes % 12.9; Mean Corpuscular Hemoglobin 33.2 pg (27.0-33.0); Mean Corpuscular Volume 97.5 fL (80-95); Mean Platelet Volume 9.7 fL (8.0-11.0); Monocytes % 10.7; Neutrophils % 74.7; Platelet Count 145 x1000/uL (130-400); RBC 4.04 m/cumm (4.50-6.00); RBC Distribution Width 15.7 % (11.8-14.1); White Blood Cell Count 4.59 k/cumm (4.4-10.8)
[2020-04-24 07:39] LABS: ALT 58 U/L (16-63); AST 68 U/L (15-37); Albumin 3.2 g/dL (3.4-5.0); Alkaline Phosphatase 127 U/L (46-116); Anion Gap 8.3 mmol/L (3-11); BUN 8 mg/dL (7-18); Bilirubin, Direct 0.33 mg/dL (0.00-0.20); Bilirubin, Total 1.2 mg/dL (0.2-1.0); CO2 24.7 mmol/L (21.0-32.0); CREATININE 0.89 mg/dL (0.70-1.30); Calcium 8.4 mg/dL (8.5-10.1); Chloride 104 mmol/L (98-107); Glucose 101 mg/dL (74-106); Magnesium 1.8 mg/dL (1.8-2.4); Potassium 3.9 mmol/L (3.5-5.1); Sodium 137 mmol/L (136-145); TSH (W/Ref FT4) 0.77 uIU/mL (0.36-3.74); Total Protein 5.7 g/dL (6.4-8.2)
[2020-04-24 08:18] LABS: Folate 13.5 ng/mL (8.6-20.0); Vitamin B12 222 pg/mL (193-986)
[2020-04-24] MEDS: Gabapentin 300 MG CAP 600 MG PO (08:19)
[2020-04-24 08:20] LABS: COVID-19 RT-PCR UVMMC Result Negative (Negative)
[2020-04-24] MEDS: MULTIVITAMIN 10 ML, THIAMINE 100 MG, FOLIC ACID 1 MG in DEXTROSE 5%-0.45% SALINE 1,000 ML 125 ML IV (08:32)
--- NOTE | 2020-04-24 08:43 | PDOC.CMIN ---
- If Service Date Differs Date of service: 04/24/20 Time of Service: 08:43 Care Management Initial Assess REASON FOR HOSPITALIZATION:: ETOH withdrawal PAST MEDICAL HISTORY/PAST SURGICAL HISTORY:: Opioid dependence, polysubstance use, HTN, alcohol withdrawal seizures, alcohol dependency CURRENT FUNCTIONAL STATUS:: Farzad is not arousable at this time. He is receiving treatment for acute alcohol withdrawal. CM reviewed the plan of care with [facility] nurse and will return when he is more alert and able to enage with assessment. ADVANCE DIRECTIVES:: None on file unable to complete or offer at this time due to patients inability to engage Has patient been provided with info about the portal/API?: No Did the patient sign up for the portal?: No CODE STATUS:: Full Code INSURANCE COVERAGE / FINANCIAL ISSUES:: Medicaid CURRENT HOME/COMMUNITY SERVICES/EQUIPMENT:: [facility] PRIMARY CARE PHYSICIAN:: Mary Crawford POTENTIAL DISCHARGE NEEDS:: Referral to resource recovery engineer, continue services through [facility] and referral to [facility] for case management. PATIENT/FAMILY EDUCATION NEEDS:: Discharge education, limitations and follow up plan of care including ask me three and self management ANTICIPATED BARRIERS TO DISCHARGE:: No anticipate barriers identified at this time TRANSPORTATION:: Pending disposition anticipate with family at time of discharge PLAN:: Farzad is currently being treated in the ICU for acute alcohol withdrawal. Anticipate he will be discharged when medcially ready. CM to fax referral to [facility] for assistance to resources and recovery. Once he is alert will review resource recovery engineer with him and outpatient substance abuse services. CM to continue to assess for ongoing discharge needs.
[2020-04-24] MEDS: Methadone Liquid 10 MG/ML 105 MG PO (08:46)
--- NOTE | 2020-04-24 08:51 | W.PM.PROGNOT ---
Date of Service Date of service: 04/24/20 Time of Service: 11:49 Assessment and Plan Assessment and plan (1) Alcohol withdrawal: Status: Acute Assessment and plan: Continue to monitor in the ICU on CIWA with prn ativan, scheduled librium, gabapentin. Would not change doses of librium at this point - will monitor CIWA scores. (2) RUQ abdominal pain: Status: Acute Assessment and plan: Given dilated CBD, will obtain MRCP to evaluate for choledocholithiasis not seen on on CT/US and for acute pancreatitis. (3) Alcohol intoxication: Status: Acute Assessment and plan: And abuse Care management consult for further recovery options (4) Opioid dependence: Status: Acute Assessment and plan: Continue methadone, prn morphine for pain (5) Hypomagnesemia: Status: Resolved Assessment and plan: Recheck in am (6) Constipation: Status: Acute Assessment and plan: Bowel regimen to be scheduled (7) Tobacco abuse: Status: Acute Assessment and plan: Advised to quit. Continue nicotrol inhaler. (8) Hepatic steatosis: Status: Chronic Assessment and plan: May not be the only thing contributing to elevated LFTs. Checking MRCP today given CBD dilatation. (9) Transaminitis: Status: Acute Assessment and plan: As above. Better today. (10) DVT prophylaxis: Status: Acute Assessment and plan: TEDs Chemical DVT ppx not indicated in an ambulatory 29 year old patient (11) Discharge planning issues: Status: Acute Assessment and plan: Full code Keep in ICU. Total Critical Care Time 35 minutes. Subjective Subjective Interval history since last seen: CIWA 16 this am - received methadone, librium, gabapentin. Then got sleepier (arousable). Currently biggest complaint is RUQ pain - like I've never had before. Required morphine overnight for the same pain. Reported LLQ pain to nursing this am. Denies dizziness, chest pain, shortness of breath, nausea. +BM - brown. Having hallucinations earlier today, not now. Not requiring oxygen/respiratory support. Exam Narrative Exam Narrative: General: pleasant male, somnolent, arousable, appears uncomfortable, A&Ox3, not tremulous or hallucinating when I came to see him HEENT: EOMI, MMM Heart: RRR, no m/r/g Lungs: CTAB Abdomen: TTP RUQ (+Varela's sign) Extremities: no e/c/c BLE's Objective Objective Clinical Data: Abnormal lab results 04/23/20 04/24/20 04/24/20 Range/Units 09:10 06: 06:20 RBC 4.04 L (4.50-6.00) m/cumm Hgb 13.4 L (13.5-17.5) g/dL Hct 39.4 L (40.0-50.0) % MCV 97.5 H (80-95) fL MCH 33.2 H (27.0-33.0) pg RDW 15.7 H (11.8-14.1) % Absolute Lymphocytes 0.59 L (1.2-3.4) k/cumm Lactate 2.4 H* (0.6-1.4) mmol/L Calcium 8.4 L (8.5-10.1) mg/dL Total Bilirubin 1.2 H (0.2-1.0) mg/dL Conjugated Bilirubin 0.33 H (0.00-0.20) mg/dL AST 68 H (15-37) U/L Alkaline Phosphatase 127 H (46-116) U/L Total Protein 5.7 L (6.4-8.2) g/dL Albumin 3.2 L (3.4-5.0) g/dL Vital Signs Temperature 36.7 C 04/24/20 04:10 Temperature Source Temporal Artery Scan 04/24/20 04:10 Pulse 78 04/24/20 03:00 Pulse 80 04/24/20 03:00 Respiratory Rate 15 04/24/20 04:10 Respiratory Effort 04/24/20 04:10 Respiratory Depth Shallow 04/24/20 04:10 Respiratory Pattern Normal 04/24/20 04:10 Blood Pressure 163/92 H 04/24/20 03:00 Blood Pressure Mean 108 04/24/20 03:00 Blood Pressure Position Sitting 04/23/20 05:39 Pulse Oximetry 98 04/24/20 04:10 Oxygen Delivery Method Room Air 04/24/20 04:10 Oxygen Flow Rate 0 04/24/20 04:10 Pain Level 8 04/24/20 08:46 Intake & Output 04/23/20 04/23/20 04/24/20 11:59 23:59 11:59 Intake Total 2154161.2 4161. 933.333 / 933.333 Output Total 880 / 1530 650 / 1530 400 / 400 Balance 1271 / 2632.2 1361.2 / 2632.2 533.333 / 533.333 Weight 83.7 kg Intake: [place] [address].2 4161. 933.333 / 933.333 Output: Urine 880 / 1530 650 / 1530 400 / 400 Other: Urine Color Yellow Pale Dark Gege Straw Yellow Urine Appearance Clear Clear Clear Urine Odor None None Normal Comment voids to urinal voids to urinal Stool Characteristics Soft Formed Brown Voiding Methods Urinal Urinal Bedside Commode Laboratory Results WBC 4.59 k/cumm (4.4-10.8) 04/24/20 06:20 RBC 4.04 m/cumm (4.50-6.00) L 04/24/20 06:20 Hgb 13.4 g/dL (13.5-17.5) L 04/24/20 06:20 Hct 39.4 % (40.0-50.0) L 04/24/20 06:20 MCV 97.5 fL (80-95) H 04/24/20 06:20 MCH 33.2 pg (27.0-33.0) H 04/24/20 06:20 MCHC 34.0 g/dL (32.0-36.0) 04/24/20 06:20 RDW 15.7 % (11.8-14.1) H 04/24/20 06:20 Plt Count 145 x1000/uL (130-400) 04/24/20 06:20 MPV 9.7 fL (8.0-11.0) 04/24/20 06:20 Immature Gran % 0.4 % 04/24/20 06:20 Neutrophils % 74.7 04/24/20 06:20 Lymphocytes % 12.9 04/24/20 06:20 Monocytes % 10.7 04/24/20 06:20 Eosinophils % 1.1 04/24/20 06:20 Basophils % 0.2 04/24/20 06:20 Absolute Neutrophils 3.43 k/cumm (1.2-6.7) 04/24/20 06:20 Absolute Lymphocytes 0.59 k/cumm (1.2-3.4) L 04/24/20 06:20 Absolute Monocytes 0.49 k/cumm (0.11-0.7) 04/24/20 06:20 Absolute Eosinophils 0.05 k/cumm (0.0-0.7) 04/24/20 06:20 Absolute Basophils 0.01 k/cumm (0.0-0.2) 04/24/20 06:20 PT 11.4 sec (9.3-11.0) H 04/23/20 05:55 INR 1.1 (0.9-1.1) 04/23/20 05:55 Sodium 137 mmol/L (136-145) 04/24/20 06:20 Potassium 3.9 mmol/L (3.5-5.1) 04/24/20 06:20 Chloride 104 mmol/L (98-107) 04/24/20 06:20 Carbon Dioxide 24.7 mmol/L (21.0-32.0) 04/24/20 06:20 Anion Gap 8.3 mmol/L (3-11) 04/24/20 06:20 BUN 8 mg/dL (7-18) 04/24/20 06:20 Creatinine 0.89 mg/dL (0.70-1.30) 04/24/20 06:20 Estimated GFR/1.73 m2 >= 60.00 (mL/min/1.73m2) 04/24/20 06:20 Glucose 101 mg/dL (74-106) 04/24/20 06:20 Lactate 1.0 mmol/L (0.6-1.4) 04/23/20 12:05 Calcium 8.4 mg/dL (8.5-10.1) L 04/24/20 06:20 Magnesium 1.8 mg/dL (1.8-2.4) 04/24/20 06:20 Total Bilirubin 1.2 mg/dL (0.2-1.0) H 04/24/20 06:20 Conjugated Bilirubin 0.33 mg/dL (0.00-0.20) H 04/24/20 06:20 AST 68 U/L (15-37) H 04/24/20 06:20 ALT 58 U/L (16-63) 06/11/20 06:20 Alkaline Phosphatase 127 U/L (46-116) H 04/24/20 06:20 Troponin I < 0.05 ng/mL (<0.06) 04/23/20 05:55 Total Protein 5.7 g/dL (6.4-8.2) L 04/24/20 06:20 Albumin 3.2 g/dL (3.4-5.0) L 04/24/20 06:20 Lipase 105 U/L (73-393) 04/23/20 05:55 Vitamin B12 222 pg/mL (193-986) 04/24/20 06:20 Folate 13.5 ng/mL (8.6-20.0) 04/24/20 06:20 TSH 0.77 uIU/mL (0.36-3.74) 04/24/20 06:20 Urine Color Yellow (Yellow) 04/23/20 06:10 Urine Clarity Clear (Clear) 04/23/20 06:10 Urine pH 8.5 (5-8) H 04/23/20 06:10 Ur Specific [place] 1.015 (1.005-1.025) 04/23/20 06:10 Urine Protein Negative mg/dL (Negative) 04/23/20 06:10 Urine Ketones Negative mg/dL (Negative) 04/23/20 06:10 Urine Blood Negative (Negative) 04/23/20 06:10 Urine Nitrite Negative (Negative) 04/23/20 06:10 Urine Bilirubin Negative (Negative) 04/23/20 06:10 Urine Urobilinogen 1.0 EU/dL (Up TO 0.2) H 04/23/20 06:10 Ur Leukocyte Esterase Negative (Negative) 04/23/20 06:10 Urine Glucose Negative mg/dL (Negative) 04/23/20 06:10 Urine Opiates Screen Negative (Negative) 04/23/20 06:10 Urine Methadone Screen Positive (Negative) A 04/23/20 06:10 Ur Barbiturates Screen Negative (Negative) 04/23/20 06:10 Ur Tricyclics Screen Negative (Negative) 04/23/20 06:10 Ur Amphetamines Screen Negative (Negative) 04/23/20 06:10 U Benzodiazepines Scrn Negative (Negative) 04/23/20 06:10 Urine Cocaine Screen Positive (Negative) A 04/23/20 06:10 Ur THC Screen Negative (Negative) 04/23/20 06:10 Ethyl Alcohol 123.4 mg/dL (<3) 04/23/20 05:55 COVID-19 PCR Negative (Negative) 04/23/20 08:41 Nasopharyn COVID-19 PCR Not Applicable 04/23/20 08:41 Ref Test Perform Site [facility] 04/23/20 08:41 US abdomen: 1. Hepatomegaly and hepatic steatosis. 2. Dilatation of the common bile duct to 9.2 mm. No evidence of cholelithiasis or choledocholithiasis.
--- NOTE | 2020-04-24 09:05 | PHA.REVIEW ---
Pharmacy Admission Review - Admission Clinical Review (Last Updated 04/23/20 @ 10:20 by Krysta Owusu MD) Discharge planning issues (Acute) DVT prophylaxis (Acute) Transaminitis (Acute) Hepatic steatosis (Acute) Constipation (Acute) Hypomagnesemia (Acute) Tobacco abuse (Acute) Alcohol intoxication (Acute) Opioid dependence (Acute) Alcohol withdrawal (Acute) amoxicillin [Amoxicillin] Allergy (Unverified 02/13/20 12:12) Skin Rash cefaclor [From Ceclor] Allergy (Unverified 02/13/20 12:12) Hives Height 5 ft 11 in Weight 83.7 kg - Renal Dosing Renal Dosing: BUN 8 mg/dL (7-18) 04/24/20 06:20 Creatinine 0.89 mg/dL (0.70-1.30) 04/24/20 06:20 Medications needing adjustments: Reviewed (est CrCl~ 132 mL/min Meds-ok) - Anticoagulation Anticoagulation: Hgb 13.4 g/dL (13.5-17.5) L 04/24/20 06:20 Hct 39.4 % (40.0-50.0) L 04/24/20 06:20 Plt Count 145 x1000/uL (130-400) 04/24/20 06:20 INR 1.1 (0.9-1.1) 04/23/20 05:55 Creatinine 0.89 mg/dL (0.70-1.30) 04/24/20 06:20 DVT Prohphylaxis: Reviewed (has TEDS) Therapeutic Anticoagulation: N/A - Opiate Usage Evaluate Pain Scale/Pains Meds: Reviewed (Morphine 4mg ivp q3h, and Methadone Liquid 105mg daily) Scheduled Bowel Reg ordered if on Opiates?: No - Relevant Labs Sodium 137 mmol/L (136-145) 04/24/20 06:20 Potassium 3.9 mmol/L (3.5-5.1) 04/24/20 06:20 Chloride 104 mmol/L (98-107) 04/24/20 06:20 Magnesium 1.8 mg/dL (1.8-2.4) 04/24/20 06:20 - DM Control DM Control: Glucose 101 mg/dL (74-106) 04/24/20 06:20 Insulin Dosing: N/A - Heart Failure/SC Heart Failure/SC: Troponin I < 0.05 ng/mL (<0.06) 04/23/20 05:55 EF%, ELAINE's, B-Blockers, Diuretics: N/A - BP Control BP Control: Blood Pressure 151/89 Blood Pressure 151/93 Blood Pressure 152/95 Blood Pressure 157/100 Blood Pressure 167/99 Blood Pressure 160/101 Blood Pressure 163/92 Blood Pressure 156/92 Blood Pressure 168/104 Blood Pressure 164/90 Blood Pressure 166/108 Blood Pressure 170/110 If elevated: Reviewed (elevated but not treated, undergoing ETOH withdrawal) - Qtc Review If Elevated: Reviewed (QTc-470, (on Protonix and Zofran here) - IV to PO Switch IV Medications: Reviewed (has Banana bag currently and IVP Morphine) - Home Meds Home Med List reviewed: Reviewed (receiving liquid Methadone 105mg daily) - Current meds Current Medication Order Review: Reviewed (being treated for GI with Carafate and Protonix)
[2020-04-24] MEDS: Normal Saline Flush 10 ML SYR IVP ×4 (09:51→20:19)
[2020-04-24] MEDS: Pantoprazole 40 MG VIAL IVP ×2 (09:51→20:18)
[2020-04-24] MEDS: Sucralfate 1 GM TAB PO ×3 (09:57→20:18)
[2020-04-24] MEDS: Gadoterate meglumine 20 ML VIAL 13 ML IVP (12:46)
--- NOTE | 2020-04-24 13:40 | W.NUTRFU ---
Date of service: 04/24/20 Time of Service: 13:40 Nutritional Follow up NOTE: 29 year old male admitted into ICU for ETOH withdrawl. PMH: pancreatitis, hepatic stenosis. Meds include thiamin, MVI and folic acid to replete. Currently NPO x 2 days. Receiving IVF D5, 125ml/hr. If unable to transition to PO diet in next 3 days, will be at risk for nutritional decline. Will follow and make necessary recommendations. Time Spent in Nutritional Counseling and Treatment: 0
--- NOTE | 2020-04-24 16:51 | DI.VRAD_ITS ---
PROCEDURE INFORMATION: Exam: MR Abdomen Without Contrast Exam date and time: 04/24/2020 4:03 PM Age: 29 years old Clinical indication: Abdominal pain; Other: Ruq pain; Patient HX: Limited study due to anxiety and motion. Patient could not tolerate additional imaging TECHNIQUE: Imaging protocol: MR of the abdomen without contrast. COMPARISON: CT ABDOMEN PELVIS W 04/23/2020 6:21 AM FINDINGS: The study is limited because of patient motion artifact and the patient could not tolerate completion of the MR study. Liver: No mass. The increased T1 and low T2 signal within the liver parenchyma is consistent with diffuse fatty infiltration. Gallbladder and bile ducts: Cholelithiasis is not identified. Abnormal biliary ductal dilation is present with the common bile duct measuring up to 13 mm in diameter down to the head of the pancreas. No definite obstructing intraductal calculus seen, however. Pancreas: There is marked inflammatory change and fluid present in the peripancreatic fat planes extending into both anterior pararenal spaces into the lesser sac region of the upper abdomen suggestive of underlying acute pancreatitis. The main pancreatic duct is not dilated. No evidence of pancreatic necrosis or pancreatic pseudocyst formation. No ascites. Spleen: Unremarkable. No splenomegaly. Adrenals: Unremarkable. No mass. Kidneys and ureters: Unremarkable. No solid mass. No hydronephrosis. Stomach and bowel: Visualized stomach and intestines are unremarkable. Intraperitoneal space: No free fluid. Arteries: No abdominal aortic aneurysm. Bones/joints: Portions of the thoracic and lumbar spine visualized appear normal. Soft tissues: Unremarkable. IMPRESSION: 1. Questionable acute pancreatitis. There is marked inflammatory change and fluid present in the peripancreatic fat planes extending into both anterior pararenal spaces into the lesser sac region of the upper abdomen suggestive of underlying acute pancreatitis. The main pancreatic duct is not dilated. No evidence of pancreatic necrosis or pancreatic pseudocyst formation. No ascites. 2. Cholelithiasis is not identified. The gallbladder appears normal. 3. Abnormal biliary ductal dilation is present with the common bile duct measuring up to 13 mm in diameter down to the head of the pancreas. No definite obstructing intraductal calculus or obstructing pancreatic mass seen, however. 4. Diffuse fatty infiltration of the liver. Dictated and Authenticated by: Cabrera Alan MD. Ordering:KATIE Chaparro MD
[2020-04-24] MEDS: LORazepam 1 MG TAB PO/SL (23:59)
[2020-04-25] VITALS (39 sets, daily range): BP systolic 122–163; BP diastolic 66–109; PULSE 54–123; RESP 8–25; TEMP 36.1–36.7; O2SAT 94–99
[2020-04-25] MEDS: LORazepam 2 MG/ML VIAL IVP ×11 (00:40→23:45)
[2020-04-25] MEDS: chlordiazePOXIDE 25 MG CAP 50 MG PO ×3 (02:38→07:49)
[2020-04-25] MEDS: Sucralfate 1 GM TAB PO ×5 (02:38→22:48)
[2020-04-25] MEDS: Normal Saline 1,000 ML 125 ML IV ×2 (04:21→19:31)
[2020-04-25 07:03] LABS: Abs Immature Grans 0.02 k/cumm (0.0-0.09); Absolute Basophil Count 0.01 k/cumm (0.0-0.2); Absolute Eosinophil Count 0.16 k/cumm (0.0-0.7); Absolute Lymphocyte Count 0.93 k/cumm (1.2-3.4); Absolute Monocyte Count 0.33 k/cumm (0.11-0.7); Absolute Neutrophil Count 2.94 k/cumm (1.2-6.7); Basophils % 0.2; Eosinophils % 3.6; HCT 36.4 % (40.0-50.0); HGB 12.3 g/dL (13.5-17.5); Immature Grans % 0.5 %; Lymphocytes % 21.2; Mean Corp. HGB Concentration 33.8 g/dL (32.0-36.0); Mean Corpuscular Hemoglobin 33.2 pg (27.0-33.0); Mean Corpuscular Volume 98.4 fL (80-95); Mean Platelet Volume 9.6 fL (8.0-11.0); Monocytes % 7.5; Platelet Count 113 x1000/uL (130-400); RBC Distribution Width 15.6 % (11.8-14.1); White Blood Cell Count 4.39 k/cumm (4.4-10.8)
[2020-04-25 07:23] LABS: ALT 40 U/L (16-63); AST 39 U/L (15-37); Albumin 2.8 g/dL (3.4-5.0); Alkaline Phosphatase 115 U/L (46-116); BUN 9 mg/dL (7-18); Bilirubin, Direct 0.32 mg/dL (0.00-0.20); Bilirubin, Total 0.9 mg/dL (0.2-1.0); CREATININE 0.91 mg/dL (0.70-1.30); Calcium 8.3 mg/dL (8.5-10.1); Chloride 104 mmol/L (98-107); Glucose 102 mg/dL (74-106); Magnesium 1.4 mg/dL (1.8-2.4); Potassium 3.5 mmol/L (3.5-5.1); Sodium 138 mmol/L (136-145); Total Protein 5.5 g/dL (6.4-8.2)
[2020-04-25] MEDS: Docusate Sodium 100 MG CAP PO ×2 (07:49→20:19)
[2020-04-25] MEDS: Normal Saline Flush 10 ML SYR IVP ×3 (07:50→16:30)
[2020-04-25] MEDS: Pantoprazole 40 MG VIAL IVP ×2 (07:50→20:19)
--- NOTE | 2020-04-25 08:12 | W.PM.PROGNOT ---
Date of Service Date of service: 04/25/20 Time of Service: 12:00 Assessment and Plan Assessment and plan (1) Alcohol withdrawal: Status: Acute Assessment and plan: Improving. Start to decrease scheduled librium. Continue to monitor in the ICU on CIWA with prn ativan, daily gabapentin. Continue banana bag daily. (2) Acute pancreatitis: Status: Acute Assessment and plan: Seen on MRCP. Does have a dilated CBD, but no evidence of choledocholithiasis. Will consult GI for inpatient vs outpatient ERCP. Per patient, this is his 4th bout of pancreatitis. Advance diet. (3) Alcohol abuse: Status: Chronic Assessment and plan: Care management is setting the patient up with recovery options. (4) Opioid dependence: Status: Acute Assessment and plan: Continue methadone, prn morphine for pain (5) Hypomagnesemia: Status: Acute Assessment and plan: Replete (6) Constipation: Status: Resolved Assessment and plan: Bowel regimen to be scheduled (7) Tobacco abuse: Status: Chronic Assessment and plan: Advised to quit. Continue nicotrol inhaler. (8) Hepatic steatosis: Status: Chronic Assessment and plan: May not be the only thing contributing to elevated LFTs given acute pancreatitis. Needs to stop drinking. Referring to GI. (9) Transaminitis: Status: Acute Assessment and plan: As above. Better today. (10) DVT prophylaxis: Status: Acute Assessment and plan: TEDs Chemical DVT ppx not indicated in an ambulatory 29 year old patient (11) Discharge planning issues: Status: Acute Assessment and plan: Full code Keep in ICU. Total Critical Care Time 35 minutes. Subjective Subjective Interval history since last seen: Denies dizziness, chest pain, shortness of breath, nausea. He can feel his pancreas, but it feels a lot better. Overall, feels better. A&Ox3, CIWA 11 - 3 mg of IV ativan at 6:18. CIWA score of 3 since. VSS. O2 sat 97%. HR 60-90. Not retaining urine. +BM. Pain 5/10. Diet advanced to clears - tolerating. Requests advancing of the diet to solid (otherwise, considering leaving AMA, but agrees to stay). Some visual disturbance (?baseline due to vision loss). Auditory hallucinations getting better, still there. Exam Narrative Exam Narrative: General: pleasant male, awake, A&Ox3, not tremulous or hallucinating, cooperative HEENT: EOMI, MMM Heart: RRR, no m/r/g Lungs: CTAB Abdomen: soft, nontender Extremities: no e/c/c BLE's Objective Objective Clinical Data: Abnormal lab results 04/25/20 04/25/20 Range/Units 06:50 06:50 WBC 4.39 L (4.4-10.8) k/cumm RBC 3.70 L (4.50-6.00) m/cumm Hgb 12.3 L (13.5-17.5) g/dL Hct 36.4 L (40.0-50.0) % MCV 98.4 H (80-95) fL MCH 33.2 H (27.0-33.0) pg RDW 15.6 H (11.8-14.1) % Plt Count 113 L (130-400) x1000/uL Absolute Lymphocytes 0.93 L (1.2-3.4) k/cumm Calcium 8.3 L (8.5-10.1) mg/dL Magnesium 1.4 L (1.8-2.4) mg/dL Conjugated Bilirubin 0.32 H (0.00-0.20) mg/dL AST 39 H (15-37) U/L Total Protein 5.5 L (6.4-8.2) g/dL Albumin 2.8 L (3.4-5.0) g/dL Vital Signs Temperature 36.7 C 04/25/20 07:54 Temperature Source Temporal Artery Scan 04/25/20 07:54 Pulse 80 04/25/20 07:54 Pulse 65 04/25/20 04:00 Respiratory Rate 17 04/25/20 07:54 Respiratory Effort 04/25/20 07:54 Respiratory Depth Normal 04/25/20 07:54 Respiratory Pattern Normal 04/25/20 07:54 Blood Pressure 146/79 H 04/25/20 07:54 Blood Pressure Mean 101 04/25/20 07:54 Blood Pressure Position Sitting 04/25/20 07:54 Pulse Oximetry 97 04/25/20 07:54 Oxygen Delivery Method Room Air 04/25/20 07:54 Oxygen Flow Rate 0 04/25/20 07:54 Pain Level 5 04/25/20 07:54 Intake & Output 04/24/20 04/24/20 04/25/20 11:59 23:59 11:59 Intake Total 1933.333 / 3004.533 1071.2 / 3004.533 1055.833 / 1055.833 Output Total 1100 / 1475 375 / 1475 900 / 900 Balance 833.333 / 1529.533 696.2 / 1529.533 155.833 / 155.833 Weight 89.1 kg Intake: IV 1933.333 / 2944.533 1011.2 / 2944.533 995.833 / 995.833 Oral 60 / 60 60 / 60 Output: Urine 1100 / 1475 375 / 1475 900 / 900 Other: Urine Color Light Shantelle Light Shantelle Light Shantelle Urine Appearance Clear Clear Clear Urine Odor Normal None Normal Comment Dark shantelle urine this am. pt voided in urinal- clear light shantelle Stool Occult Blood Negative Stool Size Moderate Stool Characteristics Formed Voiding Methods Urinal Urinal Urinal Laboratory Results WBC 4.39 k/cumm (4.4-10.8) L 04/25/20 06:50 RBC 3.70 m/cumm (4.50-6.00) L 04/25/20 06:50 Hgb 12.3 g/dL (13.5-17.5) L 04/25/20 06:50 Hct 36.4 % (40.0-50.0) L 04/25/20 06:50 MCV 98.4 fL (80-95) H 04/25/20 06:50 MCH 33.2 pg (27.0-33.0) H 04/25/20 06:50 MCHC 33.8 g/dL (32.0-36.0) 04/25/20 06:50 RDW 15.6 % (11.8-14.1) H 04/25/20 06:50 Plt Count 113 x1000/uL (130-400) L 04/25/20 06:50 MPV 9.6 fL (8.0-11.0) 04/25/20 06:50 Immature Gran % 0.5 % 04/25/20 06:50 Neutrophils % 67.0 04/25/20 06:50 Lymphocytes % 21.2 04/25/20 06:50 Monocytes % 7.5 04/25/20 06:50 Eosinophils % 3.6 04/25/20 06:50 Basophils % 0.2 04/25/20 06:50 Absolute Neutrophils 2.94 k/cumm (1.2-6.7) 04/25/20 06:50 Absolute Lymphocytes 0.93 k/cumm (1.2-3.4) L 04/25/20 06:50 Absolute Monocytes 0.33 k/cumm (0.11-0.7) 04/25/20 06:50 Absolute Eosinophils 0.16 k/cumm (0.0-0.7) 04/25/20 06:50 Absolute Basophils 0.01 k/cumm (0.0-0.2) 04/25/20 06:50 PT 11.4 sec (9.3-11.0) H 04/23/20 05:55 INR 1.1 (0.9-1.1) 04/23/20 05:55 Sodium 138 mmol/L (136-145) 04/25/20 06:50 Potassium 3.5 mmol/L (3.5-5.1) 04/25/20 06:50 Chloride 104 mmol/L (98-107) 04/25/20 06:50 Carbon Dioxide 23.0 mmol/L (21.0-32.0) 04/25/20 06:50 Anion Gap 11.0 mmol/L (3-11) 04/25/20 06:50 BUN 9 mg/dL (7-18) 04/25/20 06:50 Creatinine 0.91 mg/dL (0.70-1.30) 04/25/20 06:50 Estimated GFR/1.73 m2 >= 60.00 (mL/min/1.73m2) 04/25/20 06:50 Glucose 102 mg/dL (74-106) 04/25/20 06:50 Lactate 1.0 mmol/L (0.6-1.4) 04/23/20 12:05 Calcium 8.3 mg/dL (8.5-10.1) L 04/25/20 06:50 Magnesium 1.4 mg/dL (1.8-2.4) L 04/25/20 06:50 Total Bilirubin 0.9 mg/dL (0.2-1.0) 04/25/20 06:50 Conjugated Bilirubin 0.32 mg/dL (0.00-0.20) H 04/25/20 06:50 AST 39 U/L (15-37) H 04/25/20 06:50 ALT 40 U/L (16-63) 04/25/20 06:50 Alkaline Phosphatase 115 U/L (46-116) 04/25/20 06:50 Troponin I < 0.05 ng/mL (<0.06) 04/23/20 05:55 Total Protein 5.5 g/dL (6.4-8.2) L 04/25/20 06:50 Albumin 2.8 g/dL (3.4-5.0) L 04/25/20 06:50 Lipase 105 U/L (73-393) 04/23/20 05:55 Vitamin B12 222 pg/mL (193-986) 04/24/20 06:20 Folate 13.5 ng/mL (8.6-20.0) 04/24/20 06:20 TSH 0.77 uIU/mL (0.36-3.74) 04/24/20 06:20 Urine Color Yellow (Yellow) 04/23/20 06:10 Urine Clarity Clear (Clear) 04/23/20 06:10 Urine pH 8.5 (5-8) H 04/23/20 06:10 Ur Specific [place] 1.015 (1.005-1.025) 04/23/20 06:10 Urine Protein Negative mg/dL (Negative) 04/23/20 06:10 Urine Ketones Negative mg/dL (Negative) 04/23/20 06:10 Urine Blood Negative (Negative) 04/23/20 06:10 Urine Nitrite Negative (Negative) 04/23/20 06:10 Urine Bilirubin Negative (Negative) 04/23/20 06:10 Urine Urobilinogen 1.0 EU/dL (Up TO 0.2) H 04/23/20 06:10 Ur Leukocyte Esterase Negative (Negative) 04/23/20 06:10 Urine Glucose Negative mg/dL (Negative) 04/23/20 06:10 Urine Opiates Screen Negative (Negative) 04/23/20 06:10 Urine Methadone Screen Positive (Negative) A 04/23/20 06:10 Ur Barbiturates Screen Negative (Negative) 04/23/20 06:10 Ur Tricyclics Screen Negative (Negative) 04/23/20 06:10 Ur Amphetamines Screen Negative (Negative) 04/23/20 06:10 U Benzodiazepines Scrn Negative (Negative) 04/23/20 06:10 Urine Cocaine Screen Positive (Negative) A 04/23/20 06:10 Ur THC Screen Negative (Negative) 04/23/20 06:10 Ethyl Alcohol 123.4 mg/dL (<3) 04/23/20 05:55 COVID-19 PCR Negative (Negative) 04/23/20 08:41 Nasopharyn COVID-19 PCR Not Applicable 04/23/20 08:41 Ref Test Perform Site [facility] lab 04/23/20 08:41 MRCP: 1. Dilatation of the common bile duct up to 1.3 cm down to the head of the pancreas. No definite calculus or pancreatic mass is seen. No evidence of cholelithiasis. 2. Findings raising the question of acute pancreatitis with fluid in the peripancreatic soft tissues. No pseudocyst or pancreatic necrosis is identified. 3. Fatty infiltration of the liver.
--- NOTE | 2020-04-25 08:17 | CHAPLAIN ---
Floyd was resting in bed when I visited yesterday. He told me right away about why he was here and that he'd been on a several-day malik where he drank and then would sleep for just a few hours at a time, or pass out. He was worked about being delirious at night and seeing things and not knowing what was real. This happened him to him when he went through this before, alone at home. I offered to come in a sit with him tonight and told him to let the nurses know if he wanted company. His nurse, Megan was also very reassuring with him and reminding him that he would not be alone and that the nurse were here to care for him. Floyd said he doesn't want to drink any more after he is through this. When I asked about support from family and friends, he said some of those around him are supportive. He lives with a housemate, but that person doesn't interact much, Floyd said. He was worried about staff being judgmental because he brought this on myself, and Megan again assured him that staff was here to support him, keep him comfortable as possible and help him getting better, no judgments.
[2020-04-25 08:49] LABS: C-Reactive Protein 1.71 mg/dL (0.0-0.3); Lipase 326 U/L (73-393)
[2020-04-25] MEDS: MAGNESIUM SULFATE 4 GM/100 ML BAG IVPB (09:17)
[2020-04-25] MEDS: MULTIVITAMIN 10 ML, THIAMINE 100 MG, FOLIC ACID 1 MG in DEXTROSE 5%-0.45% SALINE 1,000 ML 125 ML IV (09:17)
[2020-04-25] MEDS: Methadone Liquid 10 MG/ML 105 MG PO (10:40)
[2020-04-25] MEDS: Cyanocobalamin 1000 MCG/ML VIAL IM/SC (10:41)
--- NOTE | 2020-04-25 12:46 | PDOC.CMPRO ---
- If Service Date Differs Date of service: 04/25/20 Time of Service: 12:46 Care Management Progress Note S/O: Farzad is alert and engaged with CM today. He is open about his history with polysubstance abuse. He states alcohol has always been his substance of choice and wants to wean off the [facility] program. He states that he has many alcoholics in his family and he feels that at times he self destructs. He misses his son who is now 7 he wants to be able to spend time with him and knows this can only happen if he stops drinking. He agrees to assistant coach services and [facility] referral. CM also provided him with contact information for all inpatient treatment centers in the area and outpatient services. Farzad makes good eye contact and appears sincere in his request for help with sobriety. CM will continue to provide support to community resources he declines an inpatient treatment program at this time. REBECA spoke wit [facility] and she is contacting the patient directly in the ICU. A: Farzad is a 29 year old male with a long history of polysubstance abuse admitted with ETOH withdrawal and pancreatitis. P: Farzad will be discharged when medically ready, he will need a last dose letter for [facility]. He has been in contact with assistant coach and has been provided services for state resources for substance abuse treatment and services. CM faxed a referral to [facility].
[2020-04-25] MEDS: Potassium Chloride 20 MEQ TABCR 40 MEQ PO (12:56)
--- NOTE | 2020-04-25 14:06 | CHAPLAIN ---
Floyd was sitting up having some ice cream when I visited. He said he had some dreams last night and would wake up and not be sure if the dreams were real or not. He was expecting this to happen and mentioned it when we talked yesterday. He seems tired and lethargic today. He said he wasn't in touch with his mom yet because she was working. Floyd seems sincere in his desire to stop drinking at this point and is working with Care Management toward that goal.
[2020-04-25] MEDS: chlordiazePOXIDE 25 MG CAP PO ×2 (15:47→19:39)
[2020-04-25] MEDS: LORazepam 1 MG TAB PO/SL (22:47)
[2020-04-26] VITALS (9 sets, daily range): BP systolic 128–133; BP diastolic 67–85; PULSE 58–104; RESP 11–20; O2SAT 96–99
[2020-04-26] MEDS: Normal Saline Flush 10 ML SYR IVP (00:08)
[2020-04-26] MEDS: diazePAM 10 MG/2 ML SYR IVP ×11 (00:08→06:04)
[2020-04-26] MEDS: hydrOXYzine PAMOATE 25 MG CAP 50 MG PO (00:22)
[2020-04-26] MEDS: chlordiazePOXIDE 25 MG CAP PO (01:36)
[2020-04-26] MEDS: LORazepam 2 MG/ML VIAL IVP ×2 (05:15→05:44)
[2020-04-26 07:05] LABS: Abs Immature Grans 0.01 k/cumm (0.0-0.09); Absolute Basophil Count 0.02 k/cumm (0.0-0.2); Absolute Eosinophil Count 0.15 k/cumm (0.0-0.7); Absolute Lymphocyte Count 1.09 k/cumm (1.2-3.4); Absolute Monocyte Count 0.38 k/cumm (0.11-0.7); Absolute Neutrophil Count 1.69 k/cumm (1.2-6.7); Basophils % 0.6; Eosinophils % 4.5; HCT 36.1 % (40.0-50.0); HGB 12.1 g/dL (13.5-17.5); Immature Grans % 0.3 %; Lymphocytes % 32.6; Mean Corp. HGB Concentration 33.5 g/dL (32.0-36.0); Mean Corpuscular Hemoglobin 32.7 pg (27.0-33.0); Mean Corpuscular Volume 97.6 fL (80-95); Mean Platelet Volume 10.2 fL (8.0-11.0); Monocytes % 11.4; Neutrophils % 50.6; Platelet Count 132 x1000/uL (130-400); RBC Distribution Width 15.8 % (11.8-14.1); White Blood Cell Count 3.34 k/cumm (4.4-10.8)
[2020-04-26 07:19] LABS: ALT 40 U/L (16-63); AST 40 U/L (15-37); Albumin 3.1 g/dL (3.4-5.0); Alkaline Phosphatase 120 U/L (46-116); Anion Gap 7.2 mmol/L (3-11); BUN 4 mg/dL (7-18); Bilirubin, Direct 0.15 mg/dL (0.00-0.20); Bilirubin, Total 0.4 mg/dL (0.2-1.0); C-Reactive Protein 1.34 mg/dL (0.0-0.3); CO2 26.8 mmol/L (21.0-32.0); CREATININE 0.78 mg/dL (0.70-1.30); Calcium 8.7 mg/dL (8.5-10.1); Chloride 105 mmol/L (98-107); Glucose 108 mg/dL (74-106); Magnesium 1.5 mg/dL (1.8-2.4); Potassium 3.8 mmol/L (3.5-5.1); Sodium 139 mmol/L (136-145); Total Protein 6.2 g/dL (6.4-8.2)
--- NOTE | 2020-04-30 11:33 | NUR.NOTE ---
Nursing Note: Patient called requesting information from admission to be faxed to [facility]. Because of the admission, the call was given to Medical Records to fax for him. Emily Jacobo.
== END 2020-04-26 06:30 | disposition left against medical advice (07) | DRG 894 ==
LOC: ER 08:47 → ICU 08:55
PROVIDERS: Admitting Provider Internal Medicine; Emergency Provider Emergency Medicine; PCP Physician Assistant; Visit Provider Internal Medicine
DX: F10.230 Alcohol dependence with withdrawal, uncomplicated (principal); K85.90 Acute pancreatitis without necrosis or infection, unspecified; F11.20 Opioid dependence, uncomplicated; Z53.29 Procedure and treatment not carried out because of patient's decision for other reasons; F14.10 Cocaine abuse, uncomplicated; E83.42 Hypomagnesemia; K59.00 Constipation, unspecified; K76.0 Fatty (change of) liver, not elsewhere classified; R74.0 Nonspecific elevation of levels of transaminase and lactic acid dehydrogenase [LDH]; Z71.3 Dietary counseling and surveillance
CPT/HCPCS: 36410; 36415; 80048; 80053; 80076; 80307; 83690; 93005; 96361; 96365; 96368; 96375; 99232; 99285; 99291; U0003; 74177; 74181; 76700; 80320; 81003; 82248; 82607; 82746; 83605; 83735; 84443; 84484; 85025; 85610; 86140; 93010; J1885; J2060; J2405; J3360; J3420; J3475; J3490

== ENCOUNTER 2020-05-06 06:47 | Emergency (ER) | payer MEDICAID, SELFPAY ==
[2020-05-06] VITALS (64 sets, daily range): BP systolic 123–203; BP diastolic 67–164; PULSE 63–137; RESP 10–22; TEMP 36.3; O2SAT 81–100
--- NOTE | 2020-05-06 07:04 | ED.GENADUL_ITS ---
Discharge Plan Disposition Patient Disposition: [facility] Condition: Stable Discharge Details Chief Complaint: ETOHWithdr Clinical Impression: Alcohol withdrawal, Hypomagnesemia, Polysubstance abuse Primary Care Provider: Jesus Dickson ED Provider: Kristine Mills Home Meds and New Rx's Prescriptions: No Action methadone 40 mg Tablet,Soluble 105 mg PO DAILY RF: 0 Discharge Data Discharge Date/Time-TO BE ENTERED AT DEPARTURE: 05/06/20 13:53 Medical Decision Making <Zaire Frias MD - Last Filed: 05/06/20 07:38> 29-year-old male with a history of polysubstance abuse, including opioid dependence, on methadone, with a history of alcohol withdrawal in the past, most recently admitted April 23 of this year, left the hospital and resumed drinking and cocaine use. Presents today stating his last drink was approximately 6 hours ago and now he feels he is in recurrent alcohol withdrawal. States he has a plan to enroll at [facility] in [place] today for treatment. States he is here for stabilization. Denies to me abdominal pain but does endorse a history of pancreatitis in the past. He is hypertensive and tachycardic. IV access established, patient given Ativan, fluid bolus, banana bag. Screening laboratories obtained. Patient to be signed out to Dr. Mills pending review of this morning's diagnostic studies and reevaluation following fluids and medications. <Kristine Mills DO - Last Filed: 05/06/20 17:18> 0800 -- Please see Dr. Frias's note for initial presentation, exam, and plan. Case endorsed to f/u on labs and pt response to meds/fluids. Pt would like to go to [facility]. Labs reviewed and note Mg 1.2. Normal K+. Liver enzymes elevated compared to last result. 0820 -- Pt reassessed - HR 90s. BP improving, 140/91. Pt states he feels better but still admits to feeling shaky. He also states he has had auditory and vi sual hallucinations since 3 AM. He states he has had a history of seizures with alcohol withdrawal. We will plan for admission to ICU for alcohol withdrawal. Case discussed with nursing supervisor type disk quality control and hospitalist and no beds available here. Will order another dose of ativan and reassess. 1030 -- Case discussed with [facility] and no ICU beds available. 1050 -- Case d/w [facility] - no beds available. 1240 -- Case discussed with Dr. Hebert at [facility] who accepts patient for transfer to ICU. Medical Records Medical records reviewed: Yes I reviewed the patient's medical records. HPI <Zaire Frias MD - Last Filed: 05/06/20 07:38> General Mode of arrival: ambulatory . Date/Time Provider Initiated Documentation: 05/06/20 06:57 . Limitations to Documentation: no limitations . Information obtained by: patient . History of Present Illness 29 year old M presents to the emergency department with the chief complaint of Alcohol withdrawal, polysubstance abuse, described as moderate and similar to prior episodes, Quality is described as constant, Patient reports no radiation. Patient started experiencing this hour(s) and it has been constant. No relieving factors improve symptom(s), No exacerbating factors reported . Patient notes denies fever/chills, seizure and syncope. Patient did receive the following treatments prior to arrival, none Related Data Home Medications Medication Instructions Recorded Confirmed methadone 105 mg PO DAILY 10/21/19 05/06/20 Allergies Allergy/AdvReac Type Severity Reaction Status Date / Time amoxicillin [Amoxicillin] Allergy Skin Rash Unverified 05/06/20 07:24 cefaclor [From Ceclor] Allergy Hives Unverified 05/06/20 07:24 General Stated Complaint: ETOHWithdr ANDRES: 2 Review of Systems <Zaire Frias MD - Last Filed: 05/06/20 07:38> Narrative: States he is drinking approximately 1016 ounce 8% beers per day, has been using inhaled cocaine. Denies significant abdominal pain. 7 systems reviewed and otherwise negative PFSH <Zaire Frias MD - Last Filed: 05/06/20 07:38> Medical History Alcohol withdrawal (Acute) Alcohol withdrawal seizure (Acute) Alcoholic pancreatitis (Acute) Drug addiction (Acute) DTs (delirium tremens) (Acute) Hypertension (Chronic) Methadone use (Acute) via BAART Opioid dependence (Acute) Polysubstance abuse (Acute) Surgical History (Updated 04/23/20 @ 10:20 by Krysta Owusu MD) No pertinent past surgical history (Acute) Family History Paternal Grandfather Heart disease Paternal Grandmother Diabetes Maternal Grandmother Diabetes Father Hypertension Social History Smoking/Tobacco Use Status: Current every day Tobacco Type: cigarettes Smoking packs per day: 0.5 Smoking cigarettes per day: 10.0 Years smoked: 10 Smoking pack-years: 5.00 Tobacco: How many years used: 10 Quit status: not considering quitting Counseling given: provider counseling and support medications Alcohol Intake: current Alcohol Intake frequency: 3 or more drinks per day Alcohol type: beer Counseling given: Yes Drug use: Occasionally Substance use type: crack/cocaine Do you feel safe at home: Yes Do you feel safe in your relationship?: Yes Exam <Zaire Frias MD - Last Filed: 05/06/20 07:38> Narrative Exam Narrative: GEN: awake, alert, oriented 3. Slightly diaphoretic, interactive. HEAD: Normocephalic, atraumatic ENT: Mucous membranes moist, oropharynx unremarkable, External ear exam unremarkable EYES: PERRL, EOMI NECK: Full ROM, no TONYA, no menigismus CHEST/RESP: Nontender, clear to auscultation bilateral, no wheeze/rhonchi/rales CARDIOVASCULAR: Regular and tachycardic, no murmur, rub aixa. 2+ Rad pulse bilateral ABDOMEN: Soft, nontender, no mass. +Bowel sounds EXT: Full ROM, no edema, no rash Neuro: Grossly normal neurologic exam, conversant, interactive. Psych: Speech fluent, thoughts congruent, affect normal Course <Zaire Frias MD - Last Filed: 05/06/20 07:38> Vital Signs Vital signs: Vital Signs Temperature 36.3 C L 05/06/20 06:51 Pulse 135 H 05/06/20 06:51 Respiratory Rate 17 05/06/20 06:51 Blood Pressure 170/107 H 05/06/20 06:51 Pulse Oximetry 98 05/06/20 06:51 Temperature 36.3 C L 05/06/20 06:51 Temperature Source Skin 05/06/20 06:51 Pulse 135 H 05/06/20 06:51 Respiratory Rate 17 05/06/20 06:51 Respiratory Effort Non-Labored 05/06/20 06:51 Blood Pressure 170/107 H 05/06/20 06:51 Blood Pressure Position Supine 05/06/20 06:51 Pulse Oximetry 98 05/06/20 06:51 Oxygen Delivery Method Room Air 05/06/20 06:51 Oxygen Flow Rate 0 05/06/20 06:51 Pain Level 0 05/06/20 06:51 Sign Out <Zaire Frias MD - Last Filed: 05/06/20 07:38> Sign Out Data: Sign Out Comment: Followup labs/re-eval Last updated by Zaire Frias MD at 05/06/20 07:49
[2020-05-06] MEDS: LORazepam 1 MG TAB PO (07:15)
[2020-05-06] MEDS: Normal Saline 1,000 ML 1000 ML IV (07:21)
[2020-05-06] MEDS: LORazepam 2 MG/ML VIAL 1 MG IVP ×3 (07:21→11:30)
[2020-05-06 07:30] LABS: Abs Immature Grans 0.01 k/cumm (0.0-0.09); Absolute Basophil Count 0.05 k/cumm (0.0-0.2); Absolute Eosinophil Count 0.05 k/cumm (0.0-0.7); Absolute Lymphocyte Count 0.95 k/cumm (1.2-3.4); Absolute Neutrophil Count 2.69 k/cumm (1.2-6.7); Basophils % 1.2; Eosinophils % 1.2; HGB 14.2 g/dL (13.5-17.5); Immature Grans % 0.2 %; Lymphocytes % 22.9; Mean Corp. HGB Concentration 34.6 g/dL (32.0-36.0); Mean Corpuscular Hemoglobin 32.6 pg (27.0-33.0); Mean Corpuscular Volume 94.3 fL (80-95); Mean Platelet Volume 9.8 fL (8.0-11.0); Monocytes % 9.6; Neutrophils % 64.9; Platelet Count 189 x1000/uL (130-400); RBC 4.35 m/cumm (4.50-6.00); RBC Distribution Width 15.4 % (11.8-14.1); White Blood Cell Count 4.15 k/cumm (4.4-10.8)
[2020-05-06] MEDS: MAGNESIUM SULFATE 8.12 MEQ, MULTIVITAMIN 10 ML, THIAMINE 100 MG, FOLIC ACID 1 MG in Nor... 168.867 MG IV (07:40)
[2020-05-06 08:04] LABS: ALT 107 U/L (16-63); AST 233 U/L (15-37); Albumin 3.9 g/dL (3.4-5.0); Alkaline Phosphatase 167 U/L (46-116); Anion Gap 10.2 mmol/L (3-11); BUN 6 mg/dL (7-18); Bilirubin, Total 1.2 mg/dL (0.2-1.0); CO2 27.8 mmol/L (21.0-32.0); CREATININE 1.06 mg/dL (0.70-1.30); Calcium 8.7 mg/dL (8.5-10.1); Chloride 100 mmol/L (98-107); Glucose 145 mg/dL (74-106); Lipase 93 U/L (73-393); Magnesium 1.2 mg/dL (1.8-2.4); Potassium 3.6 mmol/L (3.5-5.1); Sodium 138 mmol/L (136-145); Total Protein 6.9 g/dL (6.4-8.2)
[2020-05-06 08:07] LABS: Salicylate < 2.8 mg/dL (2.8-20.0)
[2020-05-06 08:25] LABS: Acetaminophen < 2 ug/mL (10-30)
[2020-05-06 08:35] LABS: ETHANOL BLOOD < 3.0 mg/dL (<3)
[2020-05-06 08:43] LABS: Bilirubin Small (Negative); Blood Negative (Negative); Clarity Clear (Clear); Glucose Negative (Negative); Ketones Trace mg/dL (Negative); Leukocyte Esterase Negative (Negative); Nitrite Negative (Negative); Specific Gravity 1.015 (1.005-1.025); pH >= 9.0 (5-8)
[2020-05-06 08:48] LABS: *AMPHETAMINES SCREEN URINE Negative (Negative); *BARBITURATES SCREEN URINE Negative (Negative); *BENZODIAZEPINES SCREEN URINE POSITIVE (Negative); Cannabinoids THC Negative (Negative); Cocaine Screen,Urine POSITIVE (Negative); METHADONE URINE SCREEN POSITIVE (Negative); OPIATES URINE SCREEN Negative (Negative)
[2020-05-06 08:51] LABS: Tricyclic Antidepressants Negative (Negative)
[2020-05-06 08:56] LABS: Bacteria Moderate HPF (Negative); C & S Indicated? Yes; Crystals Negative HPF (Negative); Epithelial Cells Negative HPF (Negative); Mucus Heavy (Negative); RBC Negative HPF (0-2); WBC 0-2 HPF (0-5)
[2020-05-06] MEDS: MAGNESIUM SULFATE 2 GM/50 ML BAG IVPB (09:10)
[2020-05-06] MEDS: LORazepam 2 MG/ML VIAL (13:50)
[2020-05-06 14:51] LABS: Casts 0-2 Hyaline LPF (Negative)
--- NOTE | 2020-05-24 18:41 | NUR.NOTE ---
Nursing Note: Marjorie Escobar [employer] RADHA asked for copies of transfer paperwork on this patient whom she took to [facility] on transfer. Her partner accidentally shredded it and she needs it for her run form. Emily Jacobo
== END 2020-05-06 13:53 | disposition short-term general hospital (02) ==
PROVIDERS: Emergency Medicine; Emergency Provider Physician Assistant; PCP Physician Assistant
DX: F10.230 Alcohol dependence with withdrawal, uncomplicated (principal); E83.42 Hypomagnesemia; F19.10 Other psychoactive substance abuse, uncomplicated; R74.8 Abnormal levels of other serum enzymes; R44.0 Auditory hallucinations; R44.1 Visual hallucinations; I10 Essential (primary) hypertension
CPT/HCPCS: 36415; 80053; 80307; 83690; 96361; 96365; 96366; 96368; 96375; 96376; 99285; 80320; 80329; 81003; 81015; 83735; 85025; 87086; J2060

== ENCOUNTER 2020-06-26 13:59 | Outpatient (REF) | payer MEDICAID, SELFPAY ==
[2020-06-29 05:18] LABS: SARS-CoV-2 RNA Undetected (Undetected); SARS-CoV-2 Specimen Source Nasopharynx
== END 2020-06-26 14:19 ==
LOC: NCHCN 13:59
PROVIDERS: PCP Physician Assistant; Visit Provider Nurse Practitioner Family
DX: J02.9 Acute pharyngitis, unspecified (principal)
CPT/HCPCS: U0003

== ENCOUNTER 2020-07-04 09:13 | Outpatient (CLI) | payer MEDICAID, SELFPAY ==
[2020-07-04 13:29] LABS: Ammonia < 10 umol/L (11-32)
[2020-07-04 13:33] LABS: Anion Gap 3.1 mmol/L (3-11); BUN 8 mg/dL (7-18); CO2 30.9 mmol/L (21.0-32.0); CREATININE 0.85 mg/dL (0.70-1.30); Calculated LDL 54 mg/dL (<100); Chloride 99 mmol/L (98-107); Cholesterol 156 mg/dL (<200); Glucose 150 mg/dL (74-106); HDL Cholesterol 81 mg/dL (40-60); Potassium 4.2 mmol/L (3.5-5.1); Sodium 133 mmol/L (136-145); Triglyceride 108 mg/dL (<150)
== END 2020-07-04 09:33 ==
PROVIDERS: PCP Physician Assistant; Visit Provider Physician Assistant
DX: I10 Essential (primary) hypertension (principal)
CPT/HCPCS: 36415; 80048; 80061; 82140

== ENCOUNTER 2020-10-07 16:25 | Outpatient (REF) | payer MEDICAID, SELFPAY ==
[2020-10-11 07:20] LABS: Patient Race White; SARS-CoV-2 RNA Undetected (Undetected); SARS-CoV-2 Specimen Source Nasal
== END 2020-10-07 16:45 ==
LOC: NCHCN 16:25
PROVIDERS: PCP Physician Assistant; Visit Provider Nurse Practitioner Family
DX: M79.18 Myalgia, other site (principal)
CPT/HCPCS: U0003

== ENCOUNTER 2020-12-22 12:11 | Outpatient (REF) | payer MEDICAID, SELFPAY ==
[2020-12-22 14:02] LABS: Glucose 99 mg/dL (74-106)
== END 2020-12-22 12:12 | disposition home or self-care (01) ==
LOC: NCHCN 12:11
PROVIDERS: PCP Physician Assistant; Visit Provider Physician Assistant
DX: R73.9 Hyperglycemia, unspecified (principal)
CPT/HCPCS: 82947

== ENCOUNTER 2021-03-16 10:43 | Inpatient (IN) | payer MEDICAID, SELFPAY ==
[2021-03-16] VITALS (29 sets, daily range): BP systolic 139–185; BP diastolic 74–102; PULSE 61–112; RESP 12–20; TEMP 36.3–37.3; O2SAT 95–100
--- NOTE | 2021-03-16 11:00 | RT.EKG_ITS ---
APPROVED REPORT Exam: Resting ECG Patient Location: E HR:74 bpm ECG Measurements Heart Rate 74 AXIS [place] 115 P 55 QRSd 93 QRS 34 QT 401 T 19 QTc 444 Conclusion Sinus rhythm...normal P axis, V-rate 60- 99 no STEMI, non-diagnostic EKG I have reviewed and interpreted ECG and agree with software generated interpretation.
[2021-03-16] MEDS: LORazepam 2 MG/ML VIAL IVP (11:15)
[2021-03-16] MEDS: Metoclopramide 10 MG/2 ML VIAL IVP (11:15)
[2021-03-16] MEDS: Normal Saline 500 ML IV (11:15)
[2021-03-16] MEDS: Normal Saline 1,000 ML 1000 ML IV (11:15)
[2021-03-16] MEDS: THIAMINE 100 MG in Normal Saline 100 ML 200 MG IVPB (11:15)
[2021-03-16 11:18] LABS: Abs Immature Grans 0.02 10^3/uL (0.0-0.06); Absolute Basophil Count 0.06 10^3/uL (0.0-0.2); Absolute Eosinophil Count 0.04 10^3/uL (0.0-0.7); Absolute Lymphocyte Count 1.77 10^3/uL (1.2-3.4); Absolute Monocyte Count 0.62 10^3/uL (0.1-0.8); Absolute Neutrophil Count 7.82 10^3/uL (1.2-6.7); Basophils % 0.6; Eosinophils % 0.4; HCT 39.7 % (40.0-50.0); HGB 13.6 g/dL (13.5-17.5); Immature Grans % 0.2; Lymphocytes % 17.1; MCH 29.4 pg (27.0-33.0); MCHC 34.3 % (32.0-36.0); MCV 85.9 fL (80-95); MPV 9.2 fL (8.0-11.0); Neutrophils % 75.7; Nucleated RBC 0 %; Platelet Count 242 10^3/uL (130-400); RBC 4.62 10^6/uL (4.36-5.78); RDW 12.9 % (11.8-14.1); WBC 10.33 10^3/uL (4.4-10.8)
[2021-03-16 11:26] LABS: Lipase 22 U/L (73-393)
[2021-03-16 11:33] LABS: ALT 49 U/L (16-63); AST 42 U/L (15-37); Albumin 4.1 g/dL (3.4-5.0); Alkaline Phosphatase 96 U/L (46-116); Anion Gap 10.4 mmol/L (3-11); BUN 8 mg/dL (7-18); Bilirubin, Total 0.8 mg/dL (0.2-1.0); CO2 29.6 mmol/L (21.0-32.0); Calcium 9.4 mg/dL (8.5-10.1); Chloride 104 mmol/L (98-107); Glucose 120 mg/dL (74-106); Magnesium 1.6 mg/dL (1.8-2.4); Sodium 144 mmol/L (136-145); Total Protein 7.5 g/dL (6.4-8.2)
[2021-03-16 11:38] LABS: Troponin I < 0.05 ng/mL (<0.06)
[2021-03-16] MEDS: Folic Acid 50 MG/10 ML VIAL (12:58)
[2021-03-16 14:10] LABS: Source Nasal/Nares
[2021-03-16] MEDS: Normal Saline Flush 10 ML SYR IVP ×3 (15:29→20:17)
[2021-03-16] MEDS: Enoxaparin 40 MG/0.4 ML SYR SC (15:29)
--- NOTE | 2021-03-16 15:35 | W.PM.HP.N ---
Date of service: 03/16/21 Time of Service: 15:37 Assessment and Plan Assessment and plan (1) Alcohol withdrawal: Status: Acute Assessment and plan: Phenobarbitol dosing for withdrawal; split dose for loading then prn. Watch for sedation. Banana bag infusing, then po folate, thiamine, MVI starting tomorrow. Offer treatment options. (2) Methadone use: Status: Acute Assessment and plan: Verifying dosage. Currently, will give dilaudid 1mg IV Q3H prn; titrate to effectiveness while avoiding excessive sedation. (3) Abdominal pain: Status: Acute Assessment and plan: pancreatitis (normal lipase) vs gastritis. Pain managment. IV protonix. CT abd if not improving. Qualifiers: Abdominal location: upper abdomen, unspecified Qualified Code(s): R10.10 - Upper abdominal pain, unspecified History of Present Illness History of Present Illness Chief Complaint: Abdominal pain and Vomitting Narrative: This is a 30 yo male with a h/o alcoholic pancreatitis, alcohol abuse, polysubstance abuse, HTN. He presented with c/o abd pain and vomitting since the night prior to presentation. He has a h/o alcohol abuse but had gone a year w/o drinking until appx one month ago when he started to drink hard liquor and beer. No hemetemesis. No F/C. No diarrhea. He has a h/o pancreatitis that was evident on CT scan, but with a normal lipase. His lipase is currently normal. Bilirubin normal. AST 42, ALT 49, WBC count normal, Hgb 13.6. He received a dose of 2mg IV lorazepam and a 4mg IV dose of Morphine for pain. Review of Systems All systems reviewed & are unremarkable except as noted in HPI and below PFSH Medical History (Updated 03/16/21 @ 16:13 by David Mar MD) Alcohol withdrawal Alcohol withdrawal seizure Alcoholic pancreatitis Drug addiction DTs (delirium tremens) Hypertension Methadone use via BAART Opioid dependence Polysubstance abuse Surgical History No pertinent past surgical history Family History Paternal Grandfather Heart disease Paternal Grandmother Diabetes Maternal Grandmother Diabetes Father Hypertension Social History Smoking/Tobacco Use Status: Current every day Tobacco Type: cigarettes Smoking packs per day: 0.5 Smoking cigarettes per day: 10.0 Years smoked: 10 Smoking pack-years: 5.00 Tobacco: How many years used: 10 Quit status: not considering quitting Counseling given: provider counseling and support medications Smoking risk assessment performed?: Yes Alcohol Intake: current Alcohol Intake frequency: 3 or more drinks per day Alcohol type: beer Counseling given: Yes Drug use: Current Sobriety Substance use type: crack/cocaine Do you feel safe at home: Yes Do you feel safe in your relationship?: Yes Meds Allergies and Home Medications Allergies Allergy/AdvReac Type Severity Reaction Status Date / Time amoxicillin [Amoxicillin] Allergy Skin Rash Unverified 03/16/21 10:55 cefaclor [From Ceclor] Allergy Hives Unverified 03/16/21 10:55 Home Medications Medication Instructions Recorded Confirmed Type methadone 105 mg PO DAILY 10/21/19 03/16/21 History Exam Const General: cooperative and acute distress mild (abd pain) Eyes Sclera: sclerae normal Pupils: PERRL Resp Effort & Inspection: normal respiratory effort Auscultation: clear to auscultation bilaterally Cardio Rate: regular rate Rhythm: regular rhythm Heart Sounds: S1 normal and S2 normal GI Inspection: non-distended Palpation: soft and tender in the LUQ Skin General skin exam: no rashes or lesions noted Extrem General: no pedal edema and no calf tenderness Psych Appearance: grossly normal Mental Status: mental status grossly normal Speech and Movement: speech and movement normal Results Labs Result diagrams: 03/16/21 11:03 03/16/21 11:03 Labs: Laboratory Results - last 24 hr 03/16/21 03/16/21 03/16/21 11:03 11:03 11:03 WBC 10.33 RBC 4.62 Hgb 13.6 Hct 39.7 L MCV 85.9 MCH 29.4 MCHC 34.3 RDW 12.9 Plt Count 242 MPV 9.2 Immature Gran % 0.2 Neutrophils % 75.7 Lymphocytes % 17.1 Monocytes % 6.0 Eosinophils % 0.4 Basophils % 0.6 Nucleated RBC % 0 Absolute Neutrophils 7.82 H Absolute Lymphocytes 1.77 Absolute Monocytes 0.62 Absolute Eosinophils 0.04 Absolute Basophils 0.06 Sodium 144 Potassium 4.0 Chloride 104 Carbon Dioxide 29.6 Anion Gap 10.4 BUN 8 Creatinine 1.0 Estimated GFR/1.73 m2 >= 60.00 Glucose 120 H Calcium 9.4 Magnesium 1.6 L Total Bilirubin 0.8 AST 42 H ALT 49 Alkaline Phosphatase 96 Troponin I < 0.05 Total Protein 7.5 Albumin 4.1 Lipase 22 COVID-19 Source 03/16/21 14:04 WBC RBC Hgb Hct MCV MCH MCHC RDW Plt Count MPV Immature Gran % Neutrophils % Lymphocytes % Monocytes % Eosinophils % Basophils % Nucleated RBC % Absolute Neutrophils Absolute Lymphocytes Absolute Monocytes Absolute Eosinophils Absolute Basophils Sodium Potassium Chloride Carbon Dioxide Anion Gap BUN Creatinine Estimated GFR/1.73 m2 Glucose Calcium Magnesium Total Bilirubin AST ALT Alkaline Phosphatase Troponin I Total Protein Albumin Lipase COVID-19 Source Nasal/nares Last Vital Signs Temp 36.5 C 03/16/21 14:34 Pulse 75 03/16/21 14:34 Resp 15 03/16/21 14:34 BP 149/96 H 03/16/21 14:34 Pulse Ox 97 03/16/21 14:34 COVID-19 Screening Have you, or household traveled for leisure in last 14 days?: No Had IN PERSON contact w/suspected or confirmed C-19 person: No
[2021-03-16] MEDS: Pantoprazole 40 MG VIAL IVP (16:34)
[2021-03-16] MEDS: Bisacodyl 5 MG TABEC PO (20:18)
[2021-03-16] MEDS: Methadone 10 MG TAB 50 MG PO (20:18)
[2021-03-16] MEDS: Normal Saline 1,000 ML 80 ML IV (20:18)
[2021-03-16 22:04] LABS: Troponin I < 0.05 ng/mL (<0.06)
[2021-03-17] VITALS (42 sets, daily range): BP systolic 140–173; BP diastolic 81–110; PULSE 60–98; RESP 11–18; TEMP 36.4–37.2; O2SAT 95–98
[2021-03-17 00:53] LABS: COVID-19 PCR Negative (Negative)
[2021-03-17] MEDS: HYDROmorphone 2 MG/ML VIAL 1 MG IVP ×2 (03:01→06:35)
[2021-03-17] MEDS: Ibuprofen 400 MG TAB PO ×2 (03:02→10:46)
[2021-03-17] MEDS: Normal Saline Flush 10 ML SYR IVP ×6 (03:02→17:07)
[2021-03-17 07:01] LABS: ALT 30 U/L (16-63); AST 21 U/L (15-37); Albumin 2.9 g/dL (3.4-5.0); Alkaline Phosphatase 79 U/L (46-116); Anion Gap 6.2 mmol/L (3-11); BUN 5 mg/dL (7-18); Bilirubin, Total 0.8 mg/dL (0.2-1.0); CO2 28.8 mmol/L (21.0-32.0); CREATININE 0.8 mg/dL (0.70-1.30); Calcium 8.1 mg/dL (8.5-10.1); Chloride 108 mmol/L (98-107); Glucose 106 mg/dL (74-106); Magnesium 1.6 mg/dL (1.8-2.4); Potassium 3.7 mmol/L (3.5-5.1); Sodium 143 mmol/L (136-145); Total Protein 5.4 g/dL (6.4-8.2)
[2021-03-17] MEDS: Multivitamin TAB 1 TAB PO (07:55)
[2021-03-17] MEDS: Thiamine 100 MG TAB PO (07:55)
[2021-03-17] MEDS: Pantoprazole 40 MG VIAL IVP (07:55)
[2021-03-17] MEDS: Folic Acid 1 MG TAB PO (07:55)
[2021-03-17] MEDS: PHENobarbital 130 MG/ML VIAL IVP ×6 (07:55→21:30)
[2021-03-17] MEDS: Methadone Liquid 10 MG/ML 105 MG PO (09:21)
[2021-03-17] MEDS: MAGNESIUM SULFATE 2 GM/50 ML BAG IVPB (09:22)
--- NOTE | 2021-03-17 12:57 | W.PM.PROGNOT ---
Date of Service Date of service: 03/17/21 Time of Service: 12:57 Assessment and Plan Assessment and plan (1) Acute pancreatitis: Status: Acute Assessment and plan: Pain has improved. Unclear if has true pancreatitis vs gastritis. Lipase normal. On PPI. (2) Alcohol intoxication: Status: Acute Assessment and plan: Phenobarbitol protocol. Monitoring O2 sats continuously. (3) Methadone use: Status: Acute Assessment and plan: Cont home dosage. Subjective Subjective Patient reports: denies shortness of breath Interval history since last seen: Pt states his abd pain has improved. Feels lousy. Has had a visual hallucination. No emesis. No F/C. Exam Const General: cooperative and ill appearing Orientation: oriented x3 Eyes Sclera: sclerae normal Pupils: PERRL Resp Effort & Inspection: normal respiratory effort Auscultation: clear to auscultation bilaterally Cardio Rate: regular rate (tachy when ambulating) Rhythm: regular rhythm Heart Sounds: S1 normal and S2 normal GI Inspection: non-distended Palpation: soft and tender in the LUQ (mild) Neuro General: patient awake (drowsy) Speech: speech normal Extrem General: no pedal edema and no calf tenderness Objective Last Vital Signs Temp 36.7 C 03/17/21 12:29 Pulse 98 H 03/17/21 12:29 Resp 15 03/17/21 12:49 BP 157/81 H 03/17/21 12:29 Pulse Ox 96 03/17/21 12:29 Laboratory Results - last 24 hr 03/16/21 03/16/21 03/17/21 14:04 21:35 06:10 Sodium 143 Potassium 3.7 Chloride 108 H Carbon Dioxide 28.8 Anion Gap 6.2 BUN 5 L Creatinine 0.8 Estimated GFR/1.73 m2 >= 60.00 Glucose 106 Calcium 8.1 L Magnesium 1.6 L Total Bilirubin 0.8 AST 21 ALT 30 Alkaline Phosphatase 79 Troponin I < 0.05 Total Protein 5.4 L Albumin 2.9 L COVID-19 Source Nasal/nares SARS-CoV-2 (PCR) Negative
--- NOTE | 2021-03-17 14:37 | PDOC.CMIN ---
- If Service Date Differs Date of service: 03/17/21 Time of Service: 14:37 Care Management Initial Assess REASON FOR HOSPITALIZATION:: Alcohol withdrawal PAST MEDICAL HISTORY/PAST SURGICAL HISTORY:: Medical History (Updated 03/16/21 @ 16:13 by David Mar MD). Alcohol withdrawal. Alcohol withdrawal seizure. Alcoholic pancreatitis. Drug addiction. DTs (delirium tremens). Hypertension. Methadone use. via BAART. Opioid dependence. Polysubstance abuse. Surgical History . No pertinent past surgical history PREVIOUS FUNCTIONAL STATUS/SOCIAL/FAMILY SUPPORTS:: Farzad lives in [place], [place] He is currently medicated for alcohol withdrawal and is unable to aprticipate in conversation. CURRENT FUNCTIONAL STATUS:: Unable to converse with Farzad as he is heavily medicated at this time. CM did contact a Diamond Setter Apprentice who came to the hospital to met with Farzad but he was not arousable. ADVANCE DIRECTIVES:: none on file Has patient been provided with info about the portal/API?: No Did the patient sign up for the portal?: No CODE STATUS:: Full Code INSURANCE COVERAGE / FINANCIAL ISSUES:: Medicaid PRIMARY CARE PHYSICIAN:: Jesus Dickson POTENTIAL DISCHARGE NEEDS:: Follow up with PCP. Farzad would likely benefit from an inpatient rehab program for polysubstance abuse PATIENT/FAMILY EDUCATION NEEDS:: Review of discharge instructions, limitations, expectations, medications. Ask Me Three TRANSPORTATION:: to be determined but likely by private vehicle PLAN:: Farzad's discharge plan is unclear at this time. He was unable to participate with CM in a conversation but had verbalized a desire to get treatment at the time of admission. A Diamond Setter Apprentice has been contacted and will folllow up with Farzad tomorrow. CM will continue to support Farzad and his discharge planning needs.
--- NOTE | 2021-03-17 17:38 | W.ED.GENAD ---
Discharge Plan Discharge Details Chief Complaint: Abd Prob Admit Date/Time: 03/16/21 13:19 Admit Provider: David Mar Attending Provider: David Mar Primary Care Provider: Jesus Dickson ED Provider: Mary Gonzales Discharge Data Discharge Date/Time-TO BE ENTERED AT DEPARTURE: 03/16/21 16:25 Medical Decision Making Patient's labs are reassuring, lipase is negative, however patient had acute pancreatitis with an abnormal MRI a year ago with a normal lipase so I am concerned that he does have pancreatitis, I am also concerned regarding sending this patient home and that he has very nauseous and vomiting and he will be unable to tolerate alcohol and given his history of delirium tremens, I think he will need admission Dr. Mendesis agreeable to admission, patient given IV fluids, IV thiamine, IV banana bag, tolerated Ativan well, We will leave further withdrawal medications to the discretion of the admitting provider Patient is alert and oriented throughout his evaluation, no evidence of DVT, suspect alcohol withdrawal and acute pancreatitis Differential Diagnosis Differential Diagnosis: Pancreatitis, electrolyte abnormality, delirium tremens, gastroenteritis Medical Records Medical records reviewed: Yes I reviewed the patient's medical records. HPI General Mode of arrival: ambulatory. Date/Time Provider Initiated Documentation: 03/16/21 10:51. Limitations to Documentation: no limitations. Information obtained by: patient. HPI Narrative: This 30-year-old male with history of alcohol withdrawal seizures, alcoholic pancreatitis, delirium tremens, methadone dependence, presents with reports of epigastric pain induced by recent alcohol binge. Patient states he is actually sober until 2 weeks ago when he started drinking again. He typically drinks between 18-24 beers a day. He has been doing this for the past 2 weeks. He states his last drink was last evening at 8:00. He presents today because he was unable to consume any additional alcohol and he has been having visual hallucinations and tremors. He states that if he tries to consume any alcohol he vomits. He states he vomited times last time today. He denies any blood in vomitus or stool. He denies any chest pain or shortness of breath. He missed his dose of methadone yesterday as he was too ill to take his methadone. He denies any cough, shortness of breath, contacts. He denies any known seizures or loss of consciousness. He denies any falls or injuries. He states the pain in his abdomen is consistent with his prior episode of pancreatitis. He thinks his last episode was approximately a year ago. He denies any additional illicit drug use. Related Data Home Medications Medication Instructions Recorded Confirmed methadone 105 mg PO DAILY 10/21/19 03/16/21 Allergies Allergy/AdvReac Type Severity Reaction Status Date / Time amoxicillin [Amoxicillin] Allergy Skin Rash Unverified 03/16/21 10:55 cefaclor [From Ceclor] Allergy Hives Unverified 03/16/21 10:55 General Stated Complaint: Abd Prob ANDRES: 2 Review of Systems Narrative: Review of systems negative x7 aside from where indicated in HPI [facility] Medical History (Updated 03/16/21 @ 16:13 by David Mar MD) Alcohol withdrawal Alcohol withdrawal seizure Alcoholic pancreatitis Drug addiction DTs (delirium tremens) Hypertension Methadone use via BAART Opioid dependence Polysubstance abuse Surgical History No pertinent past surgical history Family History Paternal Grandfather Heart disease Paternal Grandmother Diabetes Maternal Grandmother Diabetes Father Hypertension Social History Smoking/Tobacco Use Status: Current every day Tobacco Type: cigarettes Smoking packs per day: 0.5 Smoking cigarettes per day: 10.0 Years smoked: 10 Smoking pack-years: 5.00 Tobacco: How many years used: 10 Quit status: not considering quitting Counseling given: provider counseling and support medications Smoking risk assessment performed?: Yes Alcohol Intake: current Alcohol Intake frequency: 3 or more drinks per day Alcohol type: beer Counseling given: Yes Drug use: Current Sobriety Substance use type: crack/cocaine Do you feel safe at home: Yes Do you feel safe in your relationship?: Yes Exam Const General: cooperative HENMT Other: tongue fasciculations Eyes Pupils: PERRL Resp Effort & Inspection: normal respiratory effort Auscultation: clear to auscultation bilaterally Cardio Rate: tachycardic Rhythm: regular rhythm GI Rectal Exam: tenderness Other: No rebound or guarding Skin General skin exam: no rashes or lesions noted Neuro General: patient alert and patient oriented x3 Other: tremor noted Psych Attitude: cooperative Thought Content: hallucinations Insight: insight good Judgment: limited Course Vital Signs Vital signs: Vital Signs Temperature 37.1 C 03/16/21 10:52 Pulse 112 H 03/16/21 10:52 Respiratory Rate 20 03/16/21 10:52 Blood Pressure 185/102 H 03/16/21 10:52 Pulse Oximetry 99 03/16/21 10:52 Temperature 36.4 C L 03/17/21 14:04 Temperature Source Tympanic 03/17/21 14:04 Pulse 61 03/17/21 15:00 Pulse Rhythm Regular 03/17/21 17:23 Respiratory Rate 12 03/17/21 17:07 Respiratory Effort Non-Labored 03/17/21 17:23 Respiratory Depth Normal 03/17/21 17:23 Respiratory Pattern Normal 03/17/21 17:23 Blood Pressure 157/98 H 03/17/21 14:04 Blood Pressure Mean 107 03/16/21 14:00 Blood Pressure Position Sitting 03/16/21 10:52 Pulse Oximetry 96 03/17/21 14:04 Oxygen Delivery Method Room Air 03/17/21 14:04 Oxygen Flow Rate 0 03/17/21 14:04 Pain Level 0 03/17/21 14:04 Comment 03/17/21 03:16 Lab/Test Results Lab/Test Results: Laboratory Tests Range/Units 03/16/21 03/16/21 03/16/21 11:03 11:03 11:03 WBC (4.4-10.8) 10^3/uL 10.33 RBC (4.36-5.78) 10^6/uL 4.62 Hgb (13.5-17.5) g/dL 13.6 Hct (40.0-50.0) % 39.7 L MCV (80-95) fL 85.9 MCH (27.0-33.0) pg 29.4 MCHC (32.0-36.0) % 34.3 RDW (11.8-14.1) % 12.9 Plt Count (130-400) 10^3/uL 242 MPV (8.0-11.0) fL 9.2 Immature Gran % 0.2 Neutrophils % 75.7 Lymphocytes % 17.1 Monocytes % 6.0 Eosinophils % 0.4 Basophils % 0.6 Nucleated RBC % % 0 Absolute Neutrophils (1.2-6.7) 10^3/uL 7.82 H Absolute Lymphocytes (1.2-3.4) 10^3/uL 1.77 Absolute Monocytes (0.1-0.8) 10^3/uL 0.62 Absolute Eosinophils (0.0-0.7) 10^3/uL 0.04 Absolute Basophils (0.0-0.2) 10^3/uL 0.06 Sodium (136-145) mmol/L 144 Potassium (3.5-5.1) mmol/L 4.0 Chloride (98-107) mmol/L 104 Carbon Dioxide (21.0-32.0) mmol/L 29.6 Anion Gap (3-11) mmol/L 10.4 BUN (7-18) mg/dL 8 Creatinine (0.70-1.30) mg/dL 1.0 Estimated GFR/1.73 m2 (mL/min/1.73m2) >= 60.00 Glucose (74-106) mg/dL 120 H Calcium (8.5-10.1) mg/dL 9.4 Magnesium (1.8-2.4) mg/dL 1.6 L Total Bilirubin (0.2-1.0) mg/dL 0.8 AST (15-37) U/L 42 H ALT (16-63) U/L 49 Alkaline Phosphatase (46-116) U/L 96 Troponin I (<0.06) ng/mL < 0.05 Total Protein (6.4-8.2) g/dL 7.5 Albumin (3.4-5.0) g/dL 4.1 Lipase (73-393) U/L 22
[2021-03-17] MEDS: Normal Saline 1,000 ML 80 ML IV (19:41)
[2021-03-17] MEDS: Nicotine 21 MG/24 HR PATCH TD (21:35)
[2021-03-18] VITALS (13 sets, daily range): BP systolic 154–180; BP diastolic 68–132; PULSE 57–88; RESP 11–19; TEMP 36.4–36.6; O2SAT 96–100
[2021-03-18] MEDS: HYDROmorphone 2 MG/ML VIAL 1 MG IVP ×2 (02:30→08:07)
[2021-03-18] MEDS: Normal Saline Flush 10 ML SYR IVP ×2 (02:31→08:06)
[2021-03-18] MEDS: Normal Saline 1,000 ML 80 ML IV (05:37)
[2021-03-18 07:18] LABS: Platelet Count 163 10^3/uL (130-400)
[2021-03-18] MEDS: Thiamine 100 MG TAB PO (08:07)
[2021-03-18] MEDS: Folic Acid 1 MG TAB PO (08:07)
[2021-03-18] MEDS: Multivitamin TAB 1 TAB PO (08:07)
[2021-03-18] MEDS: Pantoprazole 40 MG VIAL IVP (08:07)
[2021-03-18] MEDS: Metoprolol 25 MG TAB PO (09:12)
[2021-03-18] MEDS: Methadone Liquid 10 MG/ML 105 MG PO (09:12)
[2021-03-18] MEDS: LORazepam 1 MG TAB PO (09:47)
--- NOTE | 2021-03-18 10:25 | DSE_ITS ---
Date of service: 03/18/21 Time of Service: 10:25 DS: Diagnosis Discharge Diagnosis (1) Acute pancreatitis: Status: Acute (2) Alcohol intoxication: Status: Acute (3) Methadone use: Status: Acute Discharge Plan Disposition Patient Disposition: HOME Condition: Good Discharge Details Reason For Visit: Alcohol Withdrawal Admit Date/Time: 03/16/21 13:19 Admit Provider: David Mar Attending Provider: David Mar Primary Care Provider: Jesus Dickson Hospital Course Hospital Course: This is a 30 yo male with a h/o alcoholic pancreatitis, alcohol abuse, polysubstance abuse, HTN. He presented with c/o abd pain and vomitting since the night prior to presentation. He has a h/o alcohol abuse but had gone a year w/o drinking until appx one month ago when he started to drink hard liquor and beer. No hemetemesis. No F/C. No diarrhea. He has a h/o pancreatitis that was evident on CT scan, but with a normal lipase. His lipase is currently normal. Bilirubin normal. AST 42, ALT 49, WBC count normal, Hgb 13.6. He received a dose of 2mg IV lorazepam and a 4mg IV dose of Morphine for pain. He was admitted and given a loading dose of IV phenobarbitol (divided into 3 doses), then prn phenobarbitol for CIWA scoring over 8. He had no concerning sedation. He had a generally mild withdrawal. His abd pain subsided and his diet was advanced. A Upholstery Department Supervisor made in-hospital contact with lFoyd. His plan is to stay with his grandparents after discharge; grandmother is a drug/Etoh counselor. Lorazepam 0.5mg BID prn (7 doses) prescribed. PCP f/u in 1-2 weeks. Home Meds and New Rx's Prescriptions: New multivitamin [Multiple Vitamins] Tablet 1 tab PO DAILY Qty: 0 RF: 0 metoprolol succinate 25 mg capsule,sprinkle,ER 24hr 25 mg PO DAILY Qty: 30 RF: 0 lorazepam 0.5 mg tablet 0.5 mg PO BID PRNQty: 7 RF: 0 Continued methadone 40 mg Tablet,Soluble 105 mg PO DAILY RF: 0 Discharge Instructions Instructions: Abuse of Alcohol (GEN) Stand Alone Forms: Nursing Discharge Form Referrals: Jesus Dickson [Primary Care Provider] - 04/01/21 10:30 am Activity:: Activity as Tolerated Equipment/Supplies:: No Equipment Needed Diet:: Low Sodium Discharge Orders Discharge Orders: Discharge Order (Routine); Ordered 03/18/21 Ordered By: David Mar DS: Summary Time Spent with Patient providing and/or coordinating discharge services: Greater than 30 minutes Status at Discharge Functional status at discharge: independent ambulation Overall status at discharge: patient is progressing back to baseline Mental Status: mental status grossly normal Speech and Movement: speech and movement normal Mood: congruent mood Affect: normal affect Exam Const General: cooperative and no acute distress Nutritional Appearance: average body habitus Orientation: alert and oriented x3 Eyes Sclera: sclerae normal Pupils: PERRL Resp Effort & Inspection: normal respiratory effort Auscultation: clear to auscultation bilaterally Cardio Rate: regular rate Rhythm: regular rhythm Heart Sounds: S1 normal and S2 normal GI Palpation: soft and nontender Extrem General: no pedal edema and no calf tenderness Psych Appearance: grossly normal Mental Status: mental status grossly normal Speech and Movement: speech and movement normal Mood: congruent mood Affect: normal affect DS: Data Vitals/I&O Vitals and I&O: Vital Signs Temperature 36.4 C L 03/18/21 08:03 Temperature Source Tympanic 03/18/21 08:03 Pulse 88 03/18/21 08:03 Pulse Rhythm Regular 03/18/21 08:12 Respiratory Rate 19 03/18/21 08:03 Respiratory Effort Non-Labored 03/18/21 08:12 Respiratory Depth Normal 03/18/21 08:12 Respiratory Pattern Normal 03/18/21 08:12 Blood Pressure 177/106 H 03/18/21 08:03 Blood Pressure Mean 107 03/16/21 14:00 Blood Pressure Position Sitting 03/16/21 10:52 Pulse Oximetry 100 03/18/21 08:03 Oxygen Delivery Method Room Air 03/18/21 08:03 Oxygen Flow Rate 0 03/18/21 08:03 Pain Level 6 03/18/21 09:12 Comment 03/18/21 07:53 Intake & Output 03/17/21 03/17/21 03/18/21 11:59 23:59 11:59 Intake Total 1051 / 2639 1588 / 2639 974.667 / 974.667 Output Total 650 / 2625 1974 1275 / 1275 Balance 401 / 14 -387 / 14 -300.333 / -300.333 Intake: IV 1051 / 1279 228 / 1279 794.667 / 794.667 Oral 1360 / 1360 180 / 180 Output: Urine 650 / 2625 1974 1275 / 1275 Other: Urine Color Yellow Yellow Pale Yellow Urine Appearance Clear Clear Clear Urine Odor None Normal Normal Voiding Methods Urinal Urinal Urinal Data Completed and Pending Labs on day of discharge: Labs from last 24 hours 03/18/21 06:40 Plt Count 163 PFSH Medical History Alcohol withdrawal Alcohol withdrawal seizure Alcoholic pancreatitis Drug addiction DTs (delirium tremens) Hypertension Methadone use via BAART Opioid dependence Polysubstance abuse Surgical History No pertinent past surgical history Family History Paternal Grandfather Heart disease Paternal Grandmother Diabetes Maternal Grandmother Diabetes Father Hypertension Social History Smoking/Tobacco Use Status: Current every day Tobacco Type: cigarettes Smoking packs per day: 0.5 Smoking cigarettes per day: 10.0 Years smoked: 10 Smoking pack-years: 5.00 Tobacco: How many years used: 10 Quit status: not considering quitting Counseling given: provider counseling and support medications Smoking risk assessment performed?: Yes Alcohol Intake: current Alcohol Intake frequency: 3 or more drinks per day Alcohol type: beer Counseling given: Yes Drug use: Current Sobriety Substance use type: crack/cocaine Do you feel safe at home: Yes Do you feel safe in your relationship?: Yes
--- NOTE | 2021-03-18 16:53 | PDOC.CMDIS ---
LACE Index Scoring Tool - Questions: Length of Stay (in days): 2 Acuity (Admit via E.D.?): Yes E.D. Visits: 3 - Answers: Total Score: 8 Risk of Readmission: Low Risk Care Management Discharge Reason for Hospitalization: Alcohol withdrawal Discharge Plan: Floyd discharged to home with no additional services, as he was advocating for discharge. He will resume outpatient services at [facility]; CM provided last dose letter. Patient/Family Education Needs: Review of discharge instructions, discuss Ask Me Three.
== END 2021-03-18 11:08 | disposition home or self-care (01) | DRG 896 ==
LOC: ER 13:53 → MS 14:30
PROVIDERS: Admitting Provider Family Medicine; Emergency Provider Physician Assistant; PCP Physician Assistant; Visit Provider Family Medicine
DX: F10.132 Alcohol abuse with withdrawal with perceptual disturbance (principal); K85.90 Acute pancreatitis without necrosis or infection, unspecified; F11.20 Opioid dependence, uncomplicated; Z20.822 Contact with and (suspected) exposure to COVID-19; I10 Essential (primary) hypertension; F17.210 Nicotine dependence, cigarettes, uncomplicated; F19.10 Other psychoactive substance abuse, uncomplicated; K29.70 Gastritis, unspecified, without bleeding; F10.129 Alcohol abuse with intoxication, unspecified
CPT/HCPCS: 36415; 80053; 83690; 87635; 93005; 96361; 96365; 96375; 99285; J1650; 83735; 84484; 85025; 85049; 93010; 99223; 99233; 99239; J2060; J2560; J2765

== ENCOUNTER 2021-04-27 17:05 | Outpatient (REF) | payer MEDICAID, SELFPAY ==
[2021-04-27 15:19] LABS: ALT 36 U/L (16-63); AST 22 U/L (15-37); Albumin 4.4 g/dL (3.4-5.0); Alkaline Phosphatase 77 U/L (46-116); Anion Gap 8.8 mmol/L (3-11); BUN 6 mg/dL (7-18); Bilirubin, Total 0.3 mg/dL (0.2-1.0); CO2 29.2 mmol/L (21.0-32.0); Calcium 9.4 mg/dL (8.5-10.1); Chloride 102 mmol/L (98-107); Glucose 96 mg/dL (74-106); Magnesium 2.1 mg/dL (1.8-2.4); Potassium 4.3 mmol/L (3.5-5.1); Sodium 140 mmol/L (136-145); TSH (W/Ref FT4) 0.83 uIU/mL (0.36-3.74); Total Protein 7.2 g/dL (6.4-8.2)
[2021-04-27 15:36] LABS: Hemoglobin A1C 5.2 % (<5.7)
== END 2021-04-27 17:06 | disposition home or self-care (01) ==
LOC: NCHCN 17:05
PROVIDERS: PCP Physician Assistant; Visit Provider Family Medicine
DX: R03.0 Elevated blood-pressure reading, without diagnosis of hypertension (principal); F10.239 Alcohol dependence with withdrawal, unspecified; R73.9 Hyperglycemia, unspecified; I10 Essential (primary) hypertension
CPT/HCPCS: 80053; 83036; 83735; 84443

== ENCOUNTER 2025-10-21 09:49 | Emergency (ER) | payer OTHER, SELFPAY ==
[2025-10-21 10:07] VITALS: BP 113/79; PULSE 82; RESP 16; TEMP 36.6; O2SAT 98
--- NOTE | 2025-10-21 10:28 | ED.GENADUL_ITS ---
Discharge Plan Disposition Patient Disposition: Home Condition: Good Discharge Details Clinical Impression: Frostbite, Blister of toe Primary Care Provider: Jesus Dickson ED Provider: Dai Albright Home Meds and New Rx's Prescriptions: Continued methadone 40 mg Tablet,Soluble 105 mg PO DAILY metoprolol succinate 25 mg capsule,sprinkle,ER 24hr 25 mg PO DAILY Qty: 30 0RF lorazepam 0.5 mg tablet 0.5 mg PO BID PRNQty: 7 0RF Discharge Instructions Additional Instructions: As we discussed, my primary concern is getting a good follow-up for your foot as well as maintaining the blister that is currently still intact on your fourth toe of your left foot. As this is similar to a burn, I would like you to follow-up with the burn specialist at [facility]. Will contact you regarding contact information for them to get close follow-up. I have also referred you to local primary care. I would like for you to follow-up with them in the next 1 to 2 weeks. It is imperative that you find a way to keep your feet warm and prevent freezing and thawing over time as this could get worse and could potentially lead to severe damage of your toes. While you are in the acute healing period, please try to avoid prolonged exposure to outdoor cold. You may try to increase the size of your boot and a better sock but please avoid direct heaters such as the adhesive toe warming devices or heating pads as these could potentially cause burn to the area that has decree sensation. Please monitor the wound for signs of infection, this particularly increase if the blister opens. If you develop increased redness, increased pain, fever/chills, discharge or other new/worsening symptom please to care urgently once again. Otherwise, I would like you to follow-up with the primary care as well as burn specialist. Stand Alone Forms: Portal Information, Work Release Referrals: Jesus Dickson [Primary Care Provider, Medicine] [facility] General Date/Time Provider Initiated Documentation: 10/21/25 10:24 . Limitations to Documentation: no limitations . Information obtained by: patient and RN notes reviewed . History of Present Illness 34 year old M presents to the emergency department with the chief complaint of left foot decker bite, described as moderate, Quality is described as aching, and is localized to the left and lower extremity. Patient reports no radiation. Patient started experiencing this day(s) (4) and it has been constant. Immobilization improves symptom(s), Movement worsens symptoms . Patient notes no other symptoms.. Patient did receive the following treatments prior to arrival, none Related Data Home Medications ?Medication ?Instructions ?Recorded ?Confirmed methadone 40 mg soluble tablet 105 mg PO DAILY 9 10/21/25 lorazepam 0.5 mg tablet 0.5 mg PO BID PRN #7 tabs 10/21/25 metoprolol succinate 25 mg capsule 25 mg PO DAILY #30 caps 03/18/21 10/21/25 sprinkle, ext. release 24 hr Previous Rx's ?Medication ?Instructions ?Recorded lorazepam 0.5 mg tablet 0.5 mg PO BID PRN #7 tabs metoprolol succinate 25 mg capsule 25 mg PO DAILY #30 caps 03/18/21 sprinkle, ext. release 24 hr Allergies Allergy/AdvReac Type Severity Reaction Status Date / Time amoxicillin (Amoxicillin) Allergy Skin Rash Unverified 10/21/25 10:09 cefaclor (From Ceclor) Allergy Hives Unverified 10/21/25 10:09 General Stated Complaint: ColdExpose ANDRES: 4 Review of Systems Constitutional Constitutional: Reports as per HPI, Denies chills and Denies fever(s) Musculoskeletal Musculoskeletal: Reports as per HPI Integumentary/Breasts Skin/Breast: Reports as per HPI Neurologic Neurologic: Reports as per HPI and Denies sensory deficit Exam Const General: cooperative, healthy appearing, comfortable, no acute distress and well developed Nutritional Appearance: average body habitus and well nourished Orientation: alert and awake Resp Effort & Inspection: normal respiratory effort, able to speak in complete sentences and no respiratory distress Cardio Rate: regular rate Rhythm: regular rhythm Skin General skin exam: ecchymosis Lesions: other (dorsal left toes, 4th with hemorrhagic blister 4mm) Neuro General: patient alert and patient awake Cognition: normal cognition Speech: speech normal Sensory Exam: no sensory deficits noted Course Vital Signs Vital signs: Vital Signs Temperature 36.6 C 10/21/25 10:07 Pulse 82 10/21/25 10:07 Respiratory Rate 16 10/21/25 10:07 Blood Pressure 113/79 10/21/25 10:07 Pulse Oximetry 98 10/21/25 10:07 Temperature 36.6 C 10/21/25 10:07 Temperature Source Oral 10/21/25 10:07 Pulse 82 10/21/25 10:07 Respiratory Rate 16 10/21/25 10:07 Blood Pressure 113/79 10/21/25 10:07 Blood Pressure Position Sitting 10/21/25 10:07 Pulse Oximetry 98 10/21/25 10:07 Pain Level 1 10/21/25 10:07 Medical Decision Making Patient is a pleasant 34-year-old gentleman past medical history of alcoholic pancreatitis, polysubstance use, hypertension, presented with chief complaint of left foot frostbite. 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 At that time, he estimates that he was in the cold weather 80% of the time of a 9-hour day in and out. He states that that night he noted that it looked red and irritated and he was questioning if he may be having allergic reaction to his socks. Following day he was in the same conditions and again feet get very cold and he noted that the redness was worse and the feet were more swollen. However, states it was not frankly painful. Tuesday, 2 days ago, the pain increased in the 2nd, 3rd and 4th digits of the left foot. He states that the pain has improved but the discoloration of the toes has persisted and he still has some mild achiness in the feet. His right foot is unaffected, no symptoms in his hands or nose or elsewhere in his body. He has noted that when he is outside in the cold it again he is much more tender. His feet were never wet. He denies any fevers or chills. No trauma to the foot. On exam, patient appears nontoxic. He is hemodynamically stable. His right foot appears normal but the dorsal aspect of the toes and left foot all have some degree of erythema and discoloration. Most pronounced at the 2nd and 4th digits. Capillary refill is intact in all toes except for the fourth which is delayed over 2 seconds. Does have a small hemorrhagic blister on the dorsal aspect of the fourth digit. On the plantar surface, he has an ecchymotic appearing area of the second toe that is more mild but otherwise no blisters or other significant discoloration. Both feet are cool to the touch. The pain is under control. No drainage. I am concerned that the length of time since he had his exposure as well as the multiple exposures patient may have significant frostbite that could potentially continue to progress. Will touch base with general surgery regarding continued care. He has no darius necrosis, no evidence to suggest infection. The [address]ister [address] is in place remains intact. Spoke with Dr. Sutherland. He advised to treat like a burn. Do not opent he blister. Recommends following frostbite guidelines. Recommends f/u in burn center- [facility] for outpatient f/u. Does not recommend any medications at this time. Time frame does make this more difficult. Recommends protecting the closed blister for the time being with non-adherent dressing. Call [facility] to request consults with burn specialist. Consult pending Reevaluated patient. Has been a few hours and CVM was consulted, surgeon is not currently available but could call after they are done in the operating room. I feel it is appropriate for discharge at this time, based on patient's request and his current status. He agrees to try to keep the foot safely warm, avoiding recurrence and trying to protect the blister and to keep this from opening if possible. Blister was covered with Xeroform and fluffy dressing. I advised that he use slightly larger shoe to help prevent any compression on this area. Work note was given giving him a few days off as he is not able to avoid cold exposure at this point. Encouraged supportive care and strict turn precautions were discussed, particularly signs of worsening frostbite or infection. All of his questions and concerns were addressed and he is in agreement this plan. Plan to call patient with any updates from [facility] burn specialist once they have called us back. After patient left, [facility] called back. Consulted with Dr. Del Rosario with acute surgery at [facility]. He advised f/u in [facility] burn clinic which is afternoon. [phone] Called the patient and relayed the phone number from [facility]. He will call to schedule follow-up appointment at the burn clinic for this afternoon. He will continue to protect the toes and continue with wound management as discussed. All of his questions and concerns were addressed and he is in agreement this plan. Dictation completed using [employer] dictation software. Please excuse any errors or news videographer anomalies that may remain. [facility] All Active Problems (Updated 10/21/25 @ 12:13 by SUGAR Melendez) Blister of toe (Acute) Frostbite (Acute) Abdominal pain (Acute) Alcohol abuse (Chronic) Acute pancreatitis (Acute) RUQ abdominal pain (Acute) Discharge planning issues (Acute) DVT prophylaxis (Acute) Transaminitis (Acute) Hepatic steatosis (Chronic) Hypomagnesemia (Acute) Tobacco abuse (Chronic) Alcohol intoxication (Acute) Opioid dependence (Acute) Methadone use (Acute) via BAART Alcohol withdrawal (Acute) Medical History (Updated 10/21/25 @ 12:13 by SUGAR Melendez) Polysubstance abuse Alcoholic pancreatitis Hypertension DTs (delirium tremens) Alcohol withdrawal seizure Drug addiction Surgical History No pertinent past surgical history Family History Paternal Grandfather Heart disease Paternal Grandmother Diabetes Maternal Grandmother Diabetes Father Hypertension Social History Smoking/Tobacco Use Status: Former Tobacco Use Tobacco: How many years used: 10 Quit status: not considering quitting Counseling given: provider counseling and support medications Smoking risk assessment performed?: Yes Alcohol Intake: former Counseling given: Yes Drug use: Current Sobriety Substance use type: former substance user Housing: house Do you feel safe at home: Yes Do you feel safe in your relationship?: Yes
== END 2025-10-21 14:42 | disposition home or self-care (01) ==
PROVIDERS: Emergency Provider Physician Assistant; PCP Physician Assistant
DX: T33.832A Superficial frostbite of left toe(s), initial encounter (principal); S90.425A Blister (nonthermal), left lesser toe(s), initial encounter; X31.XXXA Exposure to excessive natural cold, initial encounter
CPT/HCPCS: 99283; 99281